=== PATIENT | male | born 1960 | race Caucasian/White ===

== ENCOUNTER 2019-06-27 09:13 | Emergency (ER) | payer MEDICARE, BC, SELFPAY ==
[2019-06-27 09:27] VITALS: BP 115/67; PULSE 84; RESP 20; TEMP 36.6; O2SAT 98
--- NOTE | 2019-06-27 09:32 | ED.GENADULT ---
HPI - General Adult General Chief complaint: Skin/Abscess/Foreign Body <KINGSLEY Vergara Last Filed: 06/27/19 09:42> Stated complaint: groin wound <KINGSLEY Vergara Last Filed: 06/27/19 09:42> Time Seen by Provider: 06/27/19 09:20 <KINGSLEY Vergara Last Filed: 06/27/19 09:42> Source: patient and family <KINGSLEY Vergara Last Filed: 06/27/19 09:42> Mode of arrival: ambulatory <KINGSLEY Vergara Last Filed: 06/27/19 09:42> Limitations: no limitations <KINGSLEY Vergara Last Filed: 06/27/19 09:42> History of Present Illness HPI narrative: Patient is a 59-year-old male who presents to emergency department for evaluation of groin wound that is been present now for the last couple of days noting some red irritation in the left inguinal region where is excoriated and irritated is a mild discomfort patient denies fever chills nausea vomiting weakness. Patient has not taken anything for her symptoms patient has not placed anything on the wound <KINGSLEY Vergara Last Filed: 06/27/19 09:42> Related Data Home medications: Home Medications Medication Instructions Recorded Confirmed atorvastatin 06/27/19 bumetanide 06/27/19 carvedilol 06/27/19 ergocalciferol (vitamin D2) 06/27/19 [Vitamin D2] fenofibric acid (choline) mg PO 06/27/19 insulin NPH isoph U-100 human unit SUBCUT 06/27/19 [Novolin N Flexpen] insulin aspart U-100 [Novolog 06/27/19 U-100 Insulin aspart] insulin glargine U-300 conc SUBCUT 06/27/19 [Toujeo Max U-300 SoloStar] insulin syringe-needle U-100 06/27/19 06/27/19 sacubitril-valsartan [Entresto] tablet 06/27/19 <KINGSLEY Vergara Last Filed: 06/27/19 09:42> Allergies/adverse reactions: Allergies Allergy/AdvReac Type Severity Reaction Status Date / Time codeine Allergy Unknown Rash Verified 06/27/19 09:30 <Mathew Guillen PA-C - Last Filed: 06/27/19 09:42> Review of Systems Review of Systems: Narrative: CONSTITUTIONAL: Denies fever, chills, or sweats. GASTROINTESTINAL: Denies nausea, vomiting SKIN: Patient with irritation to the left inguinal region there is no cellulitic changes slight pink discoloration seems to be consistent with candidiasis most likely given the splotchy appearance and that it is spread out in different areas along the side of the scrotum the groin and into the suprapubic region MUSCULOSKELETAL: Denies back pain, joint pain, or myalgia. NEUROLOGIC: Denies headache, or weakness. <Mathew Guillen PA-C - Last Filed: 06/27/19 09:42> [facility] Past Medical History Medical History: Medical History Diabetes mellitus <Mathew Guillen PA-C - Last Filed: 06/27/19 09:42> Surgical History Surgical History: Surgical History History of permanent cardiac pacemaker placement <Mathew Guillen PA-C - Last Filed: 06/27/19 09:42> Exam Narrative: Exam Narrative: GENERAL: Well-appearing, well-nourished, and in no acute distress. HEAD: Normocephalic, atraumatic. EXTREMITIES: Normal range of motion. No edema. SKIN: W patient with red tender irritated non-confluent pink discolored area of the left groin side of the scrotum and up into the suprapubic region that is splotchy and likely consistent with candidiasis NEURO: No focal deficits. Alert and oriented x3. Normal speech and gait PSYCH: Normal mood and affect. <Mathew Guillen PA-C - Last Filed: 06/27/19 09:42> Course Course Emergency Course: Patient in the room in no distress aware of case findings treatment plan and diagnosis <Mathew Guillen PA-C - Last Filed: 06/27/19 09:42> Vital Signs Vital signs: Vital Signs Temperature 36.6 C 06/27/19 09:27 Pulse Rate 84 06/27/19 09:27 Respiratory Rate 20 06/27/19 09:27 Blood Pressure 115/67 06/27/19 09:27
== END 2019-06-27 10:26 | disposition home or self-care (01) ==
LOC: ANHED 10:11
PROVIDERS: Emergency Provider Emergency Medicine
DX: L98.9 Disorder of the skin and subcutaneous tissue, unspecified (principal); E11.9 Type 2 diabetes mellitus without complications; Z79.4 Long term (current) use of insulin
CPT/HCPCS: 99283

== ENCOUNTER 2019-08-02 15:36 | Outpatient (CLI) | payer MEDICARE, BC, SELFPAY ==
[2019-08-02 16:33] LABS: Basophils Absolute Auto 0.1 K/mm3 (0.0-0.1); Basophils Percent Auto 0.5 % (0.2-1.2); Eosinophils Absolute Auto 0.3 K/mm3 (0-0.3); Hematocrit 36.1 % (42.0-52.0); Hemoglobin 12.1 g/dL (14.0-18.0); Immature Granulocyte Absolute 0.14 K/mm3 (0.00-0.031); Immature Granulocyte Percent A 1.4 % (0-0.5); Lymphocytes Absolute Auto 2.55 K/mm3 (0.9-3.2); Lymphocytes Percent Auto 25.9 % (18.3-44.2); Mean Corpuscular HGB Conc 33.5 g/dl (32-36); Mean Corpuscular Hemoglobin 28.9 pg (26-34); Mean Corpuscular Volume 86.4 fl (80-100); Mean Platelet Volume 11.5 fl (7.4-10.4); Monocytes Absolute Auto 0.9 K/mm3 (0.1-0.6); Monocytes Percent Auto 8.9 % (2.6-8.5); Neutrophils Absolute Auto 5.9 K/mm3 (1.3-6.7); Neutrophils Percent Auto 60.3 % (45.5-73.1); Platelet Count Result 189 k/mm3 (150-375); Red Blood Count 4.18 M/mm3 (4.6-6.20); Red Cell Distribution Width 14.3 % (11.5-14.5); White Blood Count 9.9 K/mm3 (4.5-10.0)
== END 2019-08-02 15:37 | disposition home or self-care (01) ==
PROVIDERS: PCP Family Medicine; Visit Provider Family Medicine
DX: D64.9 Anemia, unspecified (principal)
CPT/HCPCS: 36415; 85025

== ENCOUNTER 2019-08-14 00:42 | Outpatient (CLI) | payer MEDICARE, BC, SELFPAY | END 2019-08-14 00:43 | disposition home or self-care (01) | LOC: ANHCOVIDDT 00:43 | PROVIDERS: PCP Family Medicine; Visit Provider Internal Medicine Gastroenterology | DX: Z01.812 Encounter for preprocedural laboratory examination (principal); Z20.828 Contact with and (suspected) exposure to other viral communicable diseases | CPT/HCPCS: 87635; C9803; U0003 ==

== ENCOUNTER 2019-08-17 00:51 | Day surgery (SDC) | payer MEDICARE, BC, SELFPAY ==
[2019-08-12 11:56] VITALS: BMI 38.0
[2019-08-17 07:20] VITALS: BP 107/68; PULSE 82; RESP 20; TEMP 36.9; O2SAT 99
--- NOTE | 2019-08-17 07:35 | WPDANESEPPF ---
Anes - Initial Pre Proc Eval Procedure: Operation Date: 08/17/19 08:30 Proposed Procedures p Colonoscopy - Toby Marquez MD Date/Time: 08/17/19 07:35 Surgeon: Toby Marquez MD Pre Op Diagnosis: Lower GI Bleed, Change in Bowel Habits Patient Data Age: 59 Gender: M Height: 5 ft 7 in Weight: 112.7 kg Last Vital Signs Temp 36.9 C 08/17/19 07:20 Pulse 82 08/17/19 07:20 Resp 20 08/17/19 07:20 BP 107/68 08/17/19 07:20 Pulse Ox 99 08/17/19 07:20 Allergies Allergy/AdvReac Type Severity Reaction Status Date / Time codeine Allergy Unknown Rash Verified 08/17/19 07:19 Home Medications Medication Instructions Recorded Confirmed Type aspirin 81 mg tablet,delayed 81 mg PO DAILY 08/02/19 08/12/19 History release atorvastatin 40 mg tablet 40 mg PO DAILY tablet 08/02/19 08/12/19 History bumetanide 2 mg tablet 2 mg PO BID tablet 08/02/19 08/12/19 History carvedilol 12.5 mg tablet 12.5 mg PO BID tablet 08/02/19 08/12/19 History ergocalciferol (vitamin D2) 1,250 50,000 unit PO WEEKLY cap 08/02/19 08/12/19 History mcg (50,000 unit) capsule fenofibric acid (choline) 135 mg 135 mg PO DAILY cap 08/02/19 08/12/19 History capsule,delayed release insulin NPH isoph U-100 human 100 60 unit SUBCUT DAILY ml 08/02/19 08/12/19 History unit/mL (3 mL) subcutaneous pen insulin aspart U-100 100 unit/mL 70 unit SUBCUT TID ml 08/02/19 08/12/19 History subcutaneous solution insulin glargine U-300 conc 300 100 unit SUBCUT HS ml 08/02/19 08/12/19 History unit/mL (3 mL) subcutaneous pen isosorbide mononitrate 30 mg 30 mg PO BID tablet 08/02/19 08/12/19 History tablet,extended release 24 hr levothyroxine 175 mcg tablet 175 mcg PO DAILY 08/02/19 08/12/19 History nitroglycerin 0.4 mg sublingual 0.4 mg SUBLINGUAL Q5M PRN 08/02/19 08/12/19 History tablet sacubitril 97 mg-valsartan 103 mg 1 tablet PO BID tablet 08/02/19 08/12/19 History tablet Patient hx anesthesia problems: none Family hx anesthesia problems: none PMFSH Past Medical History Medical History CAD (coronary artery disease) Cardiomyopathy Diabetes mellitus History of kidney stones HLD (hyperlipidemia) HTN (hypertension) Long-term insulin use [place] (myocardial infarction) Surgical History Surgical History History of permanent cardiac pacemaker placement History of ventricular septal myectomy ICD (implantable cardioverter-defibrillator) in place S/P CABG (coronary artery bypass graft) Social History Social History Smoking packs per day: 1.5 Smoking cigarettes per day: 30.0 Years smoked: 35 Smoking pack-years: 52.50 Smoking status: Former smoker Tobacco type: cigarettes Smoking end date: 10/29/12 Alcohol intake: never Substance use: never Substance use type: does not use Gender identity (if verbalized by the patient): Male Anes - Eval Final PreProcedure Day of Procedure 08/17/19 07:35 Patient weight: morbidly obese Heart: regular rate and rhythm Lungs: decreased breath sounds Airway: Mallampati scale class II Neurological: other (alert) Last oral intake: >/= 8 hours ASA classification: IV Emergent: no Anesthetic plan: proceed Anesthesia type and monitoring: general GIVS and standard monitoring Other findings: etomidate only Informed Consent: The patient's anesthetic plan and its attendant risks and benefits were discussed with the patient/family/POA. Questions were solicited and answers provided to the satisfaction of the patient/family/POA.
--- NOTE | 2019-08-17 07:40 | WPDGICN ---
Assessment and Plan Assessment and plan (1) History of lower GI bleeding: Code(s): Z87.19 - Personal history of other diseases of the digestive system Status: Acute Assessment and Plan: Patient has noticed blood in his stools typically the tight toilet bowl will be reddish. The etiology of this remains unclear will be evaluated by colonoscopy. (2) Encounter for diagnostic colonoscopy due to change in bowel habits: Code(s): R19.4 - Change in bowel habit Status: Acute Assessment and Plan: Patient reports sudden onset of diarrhea that began March of 2018. This may represent irritable bowel syndrome but that his frequency of stools at this dose Mauritian degree it is much more than typical for this high-fiber supplementation is encouraged further recommendations will be given after endoscopy. Kaopectate uses may be required to supplement fiber. (3) History of colon polyps: Code(s): Z86.010 - Personal history of colonic polyps Status: Acute Assessment and Plan: Patient has a history of colon polyps most recent colonoscopy 5 years ago revealed colon polyps 2014. Repeat colonoscopy at this time to assess this as well. (4) Obesity (BMI 30.0-34.9): Code(s): E66.9 - Obesity, unspecified Status: Acute (5) History of ventricular septal myectomy: Code(s): Z98.890 - Other specified postprocedural states Status: Acute Assessment and Plan: Patient has severe congestive heart failure. Currently followed by cardiac service at [facility] ventral transplantation is anticipated. (6) Diabetes mellitus: Code(s): E11.9 - Type 2 diabetes mellitus without complications Status: Acute GI Consult Note Consult date/time: 08/17/19 07:40 HPI: Pancho Vega is a 59 year old male Seen in evaluation at the request of Dr. Guillermo Mirza. Patient has a history of severe congestive heart failure. 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 Currently is on the cardiac transplant list. He reports a sudden change in his bowel habits after March of 2018. This occurred after a trip to [place]. He reports the rather sudden onset of this Diarrhea. He states symptoms occur up to 6 bowel movements a day. Stools are typically loose. Occasionally they will be formed and normal. He has had several episodes of red blood noted in the toilet bowl just last week. He denies significant abdominal pain however occasionally notes abdominal cramping. Because patient is on the cardiac transplant list plan is to evaluate this prior to continue cardiac evaluation. He does have a history of colon polyps identified by colonoscopy in 2015. Past medical history is significant for congestive heart failure. History of myocardial infarction. History of cardiac aneurysm repair. Status post coronary artery bypass grafting. He has a history of implanted cardiac defibrillator. He has been treated for diabetes, hypertension, Review of Systems Review of Systems: All systems reviewed & are unremarkable except as noted in HPI and below [facility] Past Medical History Medical History CAD (coronary artery disease) Cardiomyopathy Diabetes mellitus History of kidney stones HLD (hyperlipidemia) HTN (hypertension) Long-term insulin use [place] (myocardial infarction) Surgical History Surgical History History of permanent cardiac pacemaker placement History of ventricular septal myectomy ICD (implantable cardioverter-defibrillator) in place S/P CABG (coronary artery bypass graft) Social History Social History Smoking packs per day: 1.5 Smoking cigarettes per day: 30.0 Years smoked: 35 Smoking pack-years: 52.50 Smoking status: Former smoker Tobacco
[2019-08-17 07:43] LABS: Glucose Point of Care 248 (65-105)
[2019-08-17] MEDS: LACTATED RINGERS 1,000 ML 150 ML IV CONT (07:44)
[2019-08-17 08:48] VITALS: BP 117/74; PULSE 73; RESP 19; O2SAT 99
--- NOTE | 2019-08-17 09:03 | SUR.PHASEII ---
Pacemaker/defibrillator does not need interrogation post operatively per Anesthesiologist Dr. Diaz.
[2019-08-17 09:08] VITALS: BP 109/71; PULSE 69; RESP 23; O2SAT 95
[2019-08-17 09:18] VITALS: BP 117/81; PULSE 71; RESP 18; O2SAT 95
[2019-08-17 09:27] LABS: Glucose Point of Care 234 (65-105)
== END 2019-08-17 09:30 | disposition home or self-care (01) ==
PROVIDERS: PCP Family Medicine; Visit Provider Internal Medicine Gastroenterology
PROC: 0DJD8ZZ Inspection of Lower Intestinal Tract, Via Natural or Artificial Opening Endoscopic (ICD-10-PCS; CPT 45378; principal; 2019-08-17 08:30)
DX: R19.7 Diarrhea, unspecified (principal); D12.3 Benign neoplasm of transverse colon; K63.5 Polyp of colon; K62.1 Rectal polyp; K57.30 Diverticulosis of large intestine without perforation or abscess without bleeding; K64.8 Other hemorrhoids; R19.4 Change in bowel habit; Z87.19 Personal history of other diseases of the digestive system; I11.0 Hypertensive heart disease with heart failure; E11.9 Type 2 diabetes mellitus without complications; I25.2 Old myocardial infarction; I50.9 Heart failure, unspecified; E78.5 Hyperlipidemia, unspecified; I25.10 Atherosclerotic heart disease of native coronary artery without angina pectoris; I42.9 Cardiomyopathy, unspecified; Z95.1 Presence of aortocoronary bypass graft; Z79.4 Long term (current) use of insulin; Z95.810 Presence of automatic (implantable) cardiac defibrillator; Z87.891 Personal history of nicotine dependence; Z79.82 Long term (current) use of aspirin; E66.01 Morbid (severe) obesity due to excess calories; Z68.38 Body mass index [BMI] 38.0-38.9, adult
CPT/HCPCS: 45385; 88305; J7120

== ENCOUNTER 2020-09-08 15:34 | Outpatient (CLI) | payer MEDICARE, BC, SELFPAY ==
--- NOTE | ~2020-09-08 | CT_ITS ---
EXAMINATION: CT lung screening DATE: 09/08/2020 16:19 INDICATION: HX OF TOBACCO DEPENDENCE TECHNIQUE: Computed tomography (CT) of the chest was performed without intravenous contrast. Addition al 3D reconstructions utilizing coronal maximum intensity projection (MIP) were performed. Automated exposure control and iterative reconstruction technique were employed. The dose-length product was 30 6.32 mGy-cm. COMPARISON: None FINDINGS: Mild paraseptal emphysema at the upper lung zones. No pulmonary nodules, pneumonia, pulmonary edema o r pleural effusion. Heart size is normal. Atherosclerotic coronary artery calcifications with change of prior coronary artery stenting and coronary artery bypass grafting. Dual lead cardiac pacemaker wi th lead tips at the right atrial appendage and at the apex of the right ventricle. No pericardial eff usion. Thoracic aorta is normal in caliber. No pathologically enlarged thoracic calcified gallstone a t the neck of the normal-appearing gallbladder. Visualized upper abdomen is otherwise unremarkable. l ymphadenopathy. Mild thoracic spondylosis with bridging osteophytes at multiple levels consistent wit h diffuse idiopathic skeletal hyperostosis (DISH). IMPRESSION: 1. Lung-RADS category 1: Negative. Continue annual screening with noncontrast low-dose chest CT in 12 months. 2. Mild emphysema. 3. Cholelithiasis. Reviewed, dictated and finalized at location A. IMPRESSION: 1. Lung-RADS category 1: Negative. Continue annual screening with noncontrast l ow-dose chest CT in 12 months. 2. Mild emphysema. 3. Cholelithiasis.
== END 2020-09-08 15:35 | disposition home or self-care (01) ==
PROVIDERS: PCP Family Medicine; Visit Provider Family Medicine
DX: Z12.2 Encounter for screening for malignant neoplasm of respiratory organs (principal); Z87.891 Personal history of nicotine dependence; J43.9 Emphysema, unspecified; K80.20 Calculus of gallbladder without cholecystitis without obstruction
CPT/HCPCS: 71271

== ENCOUNTER → 2020-10-20 09:50 | Outpatient (CLI) | payer MEDICARE, BC, SELFPAY ==
--- NOTE | ~2020-10-20 | US_ITS ---
EXAMINATION: US abdomen complete EXAM DATE: 10/20/2020 10:21 INDICATION: R10.9 - Unspecified abdominal pain. TECHNIQUE: Multiple grayscale and Doppler images of the complete abdomen were obtained (by a technolo gist who performed the scan) and subsequently reviewed. There is no prior study for comparison. FINDINGS: The abdominal aorta is normal in caliber. Visualized portion IVC is patent. The pancreatic head a nd body are normal in appearance. The pancreatic tail is not visualized. The liver has normal echogenicity and contour. There are no focal liver lesions identified. There is no evidence of intrahepatic biliary duct dilation. Portal venous flow was seen in the hepatopedal , normal direction and has normal Doppler waveform. Common bile duct measures 4 mm, which is normal. The gallbladder wall is normal in thickness, with ex pected amount of distention. No sonographic evidence of pericholecystic fluid. There is cholelithia sis. Technologist performing exam reports patient did not demonstrate sonographic Neal's sign. P kirti note that this sign is less reliable in patients who have received pain medication. Right kidney: There is normal contour and echogenicity. It measures 11.2 x 5.0 x 5.7 centimeters. T here is an 8 mm cyst. There is no hydronephrosis. Left kidney: There is normal contour and echogenicity. It measures 9.8 x 6.1 x 4.9 centimeters. Th ere are no focal renal lesions identified. There is no hydronephrosis. The spleen measures 8.7 centimeters and is morphologically normal. IMPRESSION: 1. Cholelithiasis. Reviewed, dictated and finalized at location A. IMPRESSION: 1. Cholelithiasis.
== END ==
PROVIDERS: PCP Family Medicine; Visit Provider Nurse Practitioner Family
DX: R10.9 Unspecified abdominal pain (principal); K80.20 Calculus of gallbladder without cholecystitis without obstruction
CPT/HCPCS: 76700

== ENCOUNTER → 2021-04-20 12:43 | Outpatient (CLI) | payer MEDICARE, BC, SELFPAY ==
--- NOTE | ~2021-04-20 | CT_ITS ---
EXAMINATION: CTA abdomen pelvis DATE: 04/20/2021 13:33 INDICATION: Lower abdominal pain TECHNIQUE: Computed tomographic angiography (CTA) of the abdomen and pelvis was performed with 100 mL Omnipaque-350 intravenous contrast. Maximum intensity projection 3D-reconstructions of the aorta and other arteries were constructed by the technologist on a separate workstation. The dose-length produ ct (DLP) was 924.02 mGy-cm. Automated exposure control and iterative reconstruction technique were em ployed. COMPARISON: 09/28/2004 FINDINGS: CTA abdomen and pelvis: There is no aneurysm or dissection of the abdominal aorta. There is calcified atherosclerosis of the aorta and many of the other arteries. The celiac axis, superior mesenteric ar benjamin, and inferior mesenteric artery are unremarkable. Single renal arteries are present bilaterally. Additional findings: Minimal dependent atelectasis is present in the lung bases. Cardiomegaly is note d. There is a small sliding hiatal hernia. There is a 5 mm cyst in the right hepatic lobe. A stone is present in the nondistended gallbladder. The spleen, pancreas, and adrenal glands are normal. There is an area of cortical scarring laterally in the left mid kidney. Cysts of the right kidney measure u p to 10 mm. No pathologically enlarged abdominal or pelvic lymph nodes are identified. There is no fr ee intraperitoneal gas or evidence of bowel obstruction. Colonic diverticulosis is present without ev idence of diverticulitis. The appendix is normal. There is mild lumbar spondylosis. IMPRESSION: 1. No CT correlate for the patient's symptoms. 2. Atherosclerosis, otherwise unremarkable abdominal and pelvic CTA. 3. Cholelithiasis without evidence of cholecystitis. Reviewed, dictated and finalized at location F. [facility]
[2021-04-20 13:06] LABS: Estimated Glomerular Filt Rate 48
== END ==
PROVIDERS: PCP Family Medicine; Visit Provider Surgery
DX: R10.30 Lower abdominal pain, unspecified (principal); I70.0 Atherosclerosis of aorta; K80.20 Calculus of gallbladder without cholecystitis without obstruction
CPT/HCPCS: 74174; Q9967

== ENCOUNTER 2021-10-19 16:10 | Outpatient (CLI) | payer MEDICARE, BC, SELFPAY ==
--- NOTE | ~2021-10-19 | CT_ITS ---
EXAMINATION:CT lung screening DATE: 10/19/2021 16:33 INDICATION: Tobacco use. Smoker who quit 10 years ago with 30 pack year history. TECHNIQUE: Computed tomography (CT) of the chest was performed without intravenous contrast. Automate d exposure control and iterative reconstruction technique were employed. The dose-length product (DLP ) was 195.67 mGy-cm. COMPARISON: Chest CT 09/08/2020 FINDINGS: There is stable mild scarring at the lung apices. There is mild emphysema. No pleural effus ion. The heart size is normal. There is an old infarct in anterior wall of left ventricle. There are coronary artery calcifications. There are changes of coronary artery bypass grafting. No pericardial effusion. There is a left chest wall pacer with leads in the right atrium and right ventricle. There is a gallstone in the gallbladder, which is normal in size. There is diffuse hepatic steatosis. There is mild thoracic spondylosis. IMPRESSION: 1. Lung-RADS category 2: Benign appearance or behavior. Continue annual screening with noncontrast lo w-dose chest CT in 12 months. Reviewed, dictated and finalized at location A. IMPRESSION: 1. Lung-RADS category 2: Benign appearance or behavior. Continue annual screeni ng with noncontrast low-dose chest CT in 12 months.
== END 2021-10-19 16:11 | disposition home or self-care (01) ==
PROVIDERS: PCP Family Medicine; Visit Provider Family Medicine
DX: Z12.2 Encounter for screening for malignant neoplasm of respiratory organs (principal); Z87.891 Personal history of nicotine dependence
CPT/HCPCS: 71271

== ENCOUNTER 2021-11-17 10:47 | Emergency (ER) | payer MEDICARE, BC, SELFPAY ==
--- NOTE | ~2021-11-17 | XR_ITS ---
EXAMINATION: XR chest 2V DATE: 11/17/2021 13:05 INDICATION: Chest pain and swelling. TECHNIQUE: Frontal and lateral views of the chest were obtained. COMPARISON: Chest CT 10/19/2021 FINDINGS: There is no pneumonia, pleural effusion, pneumothorax. The heart size is normal. Median nito rnotomy wires and mediastinal surgical clips are seen, likely from prior coronary artery bypass graft ing. There is a left chest wall pacer with leads in the right atrium and right ventricle. IMPRESSION: 1. No acute cardiopulmonary disease. Reviewed, dictated and finalized at location A.
[2021-11-17 10:51] VITALS: BP 109/58; PULSE 70; RESP 18; TEMP 36.7; O2SAT 98
[2021-11-17 13:01] LABS: Basophils Absolute Auto 0.1 K/mm3 (0.0-0.1); Basophils Percent Auto 0.7 % (0.2-1.2); Eosinophils Absolute Auto 0.3 K/mm3 (0-0.3); Eosinophils Percent Auto 4.4 % (0-4.4); Hematocrit 37.8 % (42.0-52.0); Hemoglobin 12.2 g/dL (14.0-18.0); Immature Granulocyte Absolute 0.04 K/mm3 (0.00-0.031); Immature Granulocyte Percent A 0.6 % (0-0.5); Lymphocytes Absolute Auto 1.98 K/mm3 (0.9-3.2); Mean Corpuscular HGB Conc 32.3 g/dl (32-36); Mean Corpuscular Hemoglobin 28.5 pg (26-34); Mean Corpuscular Volume 88.3 fl (80-100); Mean Platelet Volume 11.8 fl (7.4-10.4); Monocytes Absolute Auto 0.6 K/mm3 (0.1-0.6); Monocytes Percent Auto 8.2 % (2.6-8.5); Neutrophils Absolute Auto 4.1 K/mm3 (1.3-6.7); Neutrophils Percent Auto 58.1 % (45.5-73.1); Platelet Count Result 200 k/mm3 (150-375); Red Blood Count 4.28 M/mm3 (4.6-6.20); Red Cell Distribution Width 13.7 % (11.5-14.5); White Blood Count 7.1 K/mm3 (4.5-10.0)
[2021-11-17 13:11] LABS: Anion Gap 17 mmol/L (8-16); Blood Urea Nitrogen 36 mg/dL (9-20); Calcium 10.1 mg/dL (8.4-10.2); Carbon Dioxide 21 mmol/L (22-30); Chloride 101 mmol/L (98-107); Estimated CRCL calculation 39 ml/min; Estimated Glomerular Filt Rate 34; Glucose 188 mg/dL (65-110); Sodium 139 mmol/L (137-145)
--- NOTE | 2021-11-17 13:27 | ED.WOUNDLAC ---
HPI - Wound/Laceration General Chief Complaint: Wound/Laceration Stated Complaint: drainage from internal defibrillator History of Present Illness HPI narrative: 61-year-old male states that about a week ago he bumped/bruised his chest around his defibrillator sits and consequently had some mild swelling around it, yesterday a small hole appeared to draining serous drainage, he denies any fevers or chills, pain around the defibrillator. Related Data Home Medications Medication Instructions Recorded Confirmed aspirin 81 mg tablet,delayed 81 mg PO DAILY 08/02/19 10/10/21 release (Adult Low Dose Aspirin) bumetanide 2 mg tablet 2 mg PO BID 08/02/19 10/10/21 carvedilol 12.5 mg tablet 12.5 mg PO BID 08/02/19 10/10/21 fenofibric acid (choline) 135 mg 135 mg PO DAILY 08/02/19 10/10/21 capsule,delayed release insulin NPH isoph U-100 human 100 60 unit subcut DAILY 08/02/19 10/10/21 unit/mL (3 mL) subcutaneous pen (Novolin N Flexpen) insulin aspart U-100 100 unit/mL 70 unit subcut TID 08/02/19 10/10/21 subcutaneous solution (Novolog U-100 Insulin aspart) insulin glargine U-300 conc 300 100 unit subcut HS 08/02/19 10/10/21 unit/mL (3 mL) subcutaneous pen (Toujeo Max U-300 SoloStar) isosorbide mononitrate 30 mg 30 mg PO BID 08/02/19 10/10/21 tablet,extended release 24 hr nitroglycerin 0.4 mg sublingual 0.4 mg sublingual Q5M PRN Chest 08/02/19 10/10/21 tablet Pain sacubitril 97 mg-valsartan 103 mg 1 tablet PO BID 08/02/19 10/10/21 tablet (Entresto) Allergies Allergy/AdvReac Type Severity Reaction Status Date / Time codeine Allergy Unknown Rash Verified 10/10/21 16:09 Review of Systems Review of Systems: CONST: No fever. HEENT: No sore throat C/V: No chest pain RESP: No cough GI: No nausea : No dysuria. M/S: No joint pain. SKIN: Small punctate skin lesion overlying defibrillator. NEURO: [No headache or focal numbness or weakness] PSYCH: [No depression] [facility] Past Medical History Medical History CAD (coronary artery disease) Cardiomyopathy Diabetes mellitus History of kidney stones HLD (hyperlipidemia) HTN (hypertension) Long-term insulin use Obesity [place] (myocardial infarction) Surgical History Surgical History H/O left inguinal hernia repair History of permanent cardiac pacemaker placement History of ventricular septal myectomy ICD (implantable cardioverter-defibrillator) in place S/P CABG (coronary artery bypass graft) Family History Family History Father Heart disease Mother Heart disease Hypertension Sibling Diabetes mellitus Social History Social History Smoking packs per day: 1.5 Smoking cigarettes per day: 30.0 Years smoked: 35 Smoking pack-years: 52.50 Smoking status: Former smoker Tobacco type: cigarettes Second hand tobacco smoke exposure: No Smoking end date: 10/29/12 Alcohol intake: never Substance use: never Substance use type: does not use Additional occupation/education comments: Disabled Gender identity (if verbalized by the patient): Male Sexual Orientation (if Verbalized by the Patient): Straight or Heterosexual Exam Narrative: EXAMINATION OF ORGAN SYSTEMS/BODY AREAS: Constitutional: Vital signs per nursing GENERAL:[No acute distress, non-toxic appearing.] HEAD: Normal with no signs of head trauma. EYES: EOMI, conjunctiva normal ENT: Hearing grossly intact LUNGS: Nonlabored breathing. HEART: [Regular rate and rhythm] ABD: [Soft], [nontender to palpation] EXT: Normal range of motion SKIN: Tiny punctate lesion overlying defibrillator, no erythema or induration or tenderness, no active drainage NEURO: [Alert and oriented x 3. No gross focal sensory or strength deficits.] PSYCH: Normal affect Course Vital Signs Vi
--- NOTE | 2021-11-17 13:50 | PC.NURSE ---
Patient updated. Pt does not wish to be transferred to [place]. Pt's states they spoke with the on-call physician with his [facility] and that they were okay with him coming to [facility] to get it looked at. Pt understood that if there was concern for infection he may then need to go to [facility]. Pt states that if there isn't a big concern for infection then he will follow up outpatient. Pt spoke to MD regarding this situation as well. Per MD, will attempt to call [facility] [employer] [facility] and discuss. Pt denies any needs at this time. Family at bedside.
[2021-11-17 15:28] VITALS: BP 101/78; PULSE 61; RESP 22; O2SAT 96
== END 2021-11-17 15:29 | disposition home or self-care (01) ==
PROVIDERS: Emergency Provider Emergency Medicine; PCP Family Medicine
DX: S29.9XXA Unspecified injury of thorax, initial encounter (principal); Z95.810 Presence of automatic (implantable) cardiac defibrillator; I25.10 Atherosclerotic heart disease of native coronary artery without angina pectoris; E11.9 Type 2 diabetes mellitus without complications; E78.5 Hyperlipidemia, unspecified; I25.2 Old myocardial infarction; I10 Essential (primary) hypertension; E66.9 Obesity, unspecified; Z68.34 Body mass index [BMI] 34.0-34.9, adult; Z87.442 Personal history of urinary calculi; Z79.4 Long term (current) use of insulin; Z79.82 Long term (current) use of aspirin; Z95.1 Presence of aortocoronary bypass graft; Z87.891 Personal history of nicotine dependence; W22.8XXA Striking against or struck by other objects, initial encounter
CPT/HCPCS: 36415; 71046; 80048; 85025; 87040; 99283

== ENCOUNTER 2022-11-05 15:49 | Outpatient (CLI) | payer MEDICARE, BC, SELFPAY ==
--- NOTE | ~2022-11-05 | CT_ITS ---
EXAMINATION: CT lung screening DATE: 11/05/2022 16:39 INDICATION: lung cancer screening TECHNIQUE: Computed tomography (CT) of the chest was performed without intravenous contrast. Addition al 3D reconstructions utilizing coronal maximum intensity projection (MIP) were performed. Automated exposure control and iterative reconstruction technique were employed. The dose-length product was 27 6.61 mGy-cm. COMPARISON: 10/19/2021 FINDINGS: Mild emphysema. New small irregular focus of groundglass opacity measuring 5 mm in the right upper lo be. No other suspicious pulmonary nodules, pneumonia, pulmonary edema or other pulmonary infiltrates. No pleural effusion. Heart size is normal. Atherosclerotic coronary artery calcifications. 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 Postoperative change of prior median sternotomy and coronary artery bypass grafting. Dual le ad pacemaker/AICD with lead tips at the right atrial appendage and near the apex of the right ventric le. No pericardial effusion. Thoracic aorta is normal in caliber. No pathologically enlarged thoracic lymphadenopathy. Calcified gallstone within the normal nondilated gallbladder. Diffuse hepatic steat osis. 1 cm hyperdense proteinaceous/hemorrhagic cyst at the right kidney. Mild to moderate thoracic s pondylosis. IMPRESSION: 1. Lung-RADS category 2: Benign appearance or behavior. Continue annual screening with noncontrast lo w-dose chest CT in 12 months. 2. Cholelithiasis. Reviewed, dictated and finalized at location L. IMPRESSION: 1. Lung-RADS category 2: Benign appearance or behavior. Continue annual screeni ng with noncontrast low-dose chest CT in 12 months. 2. Cholelithiasis.
== END 2022-11-05 15:50 | disposition home or self-care (01) ==
PROVIDERS: PCP Family Medicine; Visit Provider Family Medicine
DX: Z12.2 Encounter for screening for malignant neoplasm of respiratory organs (principal); Z87.891 Personal history of nicotine dependence; K80.20 Calculus of gallbladder without cholecystitis without obstruction
CPT/HCPCS: 71271

== ENCOUNTER 2023-12-04 14:17 | Outpatient (CLI) | payer MEDICARE, BC, SELFPAY ==
--- NOTE | ~2023-12-04 | CT_ITS ---
EXAMINATION:CT lung screening DATE: 12/04/2023 14:40 INDICATION: Personal history of nicotine dependence. Smoker who quit 12 years ago with 3 5 pack year history. TECHNIQUE: Computed tomography (CT) of the chest was performed without intravenous contrast. Automate d exposure control and iterative reconstruction technique were employed. The dose-length product (DLP ) was 358.61 mGy-cm. COMPARISON: Chest CT 11/05/2022 FINDINGS: There is mild emphysema. There is mild atelectasis bilaterally. No pleural effusion. There is left ventricular enlargement of the heart. There are changes of coronary artery bypass grafting. N o pericardial effusion. There are pacer wires in right atrium and right ventricle. There is a gallsto ne in the gallbladder, which is normal in size. There is mild thoracic spondylosis. IMPRESSION: 1. Lung-RADS category 1: Negative. Continue annual screening with noncontrast low-dose chest CT in 12 months. Reviewed, dictated and finalized at location A. IMPRESSION: 1. Lung-RADS category 1: Negative. Continue annual screening with noncontrast l ow-dose chest CT in 12 months.
== END 2023-12-04 14:18 | disposition home or self-care (01) ==
PROVIDERS: PCP Family Medicine; Visit Provider Family Medicine
DX: Z12.2 Encounter for screening for malignant neoplasm of respiratory organs (principal); Z87.891 Personal history of nicotine dependence
CPT/HCPCS: 71271

== ENCOUNTER 2024-12-17 13:35 | Outpatient (CLI) | payer MEDICARE, BC, SELFPAY ==
--- OUTSIDE RECORDS SUMMARY | 2007-12-24 11:00 | XMS_ITS | Continuity of Care Document ---
Author Organization [facility] Address [address] [place] [address] [address] [place] [address] Phone Care Team Providers Care Hand Ii Cutter Name Role Phone Ventura OD, Toby Unavailable Unavailable Procedures Procedure Date Eye Exam, New Patient Refraction Advance Directives Directive Yes / No Effective Date File Name No Information Encounters Encounter Description Practice Location Reason(s) For Visit Diagnoses Date Provider Providers Copied on Encounter [facility], [address] [place] [address] [address], [place], [place], [id number], [place] tel:[phone] [facility] No Information Nov- 5-200 8 Ventura OD Toby. [address] , [address], [place], [address], [place]. tel:[phone] Family History Family Member Type Diagnosis Age At Onset No Information Payers Payer name Insurance type Covered alliance party ID Authoriza tion(s) [employer] [id number] Social History Type Description Quantity Date Captured Comments Sex Male Smoking Status No Information Chief Complaint And Reason For Visit No Information Reason For Referral Reason For Referral No Information History Of Present Illness Encounter Date Complaint History Of Prese nt Illness No Information Functional Status Date Functional Assessmen t No Information Instructions Date Instruction Additional Infor mation No Information Assessments Type Assessment Date No Information Patient Care Teams Name Effective Dates (start - stop) Status Members No Information
--- NOTE | ~2024-12-17 | CT_ITS ---
EXAMINATION:CT lung screening DATE: 12/17/2024 13:54 INDICATION: Personal history of nicotine dependence. TECHNIQUE: Computed tomography (CT) of the chest was performed without intravenous contrast. Automated exposure control and iterative reconstruction technique were employed. The dose-length product (DLP) was 232.07 mGy-cm. COMPARISON: Chest CT 12/04/2023 FINDINGS: There is mild emphysema. There is a stable 4 mm nodule in right lower lobe. No pleural effusion. Cardiomegaly is noted. There are wall calcifications of left ventricle of the heart. There are coronary artery calcifications. There are changes of coronary artery bypass grafting. No pericardial effusion. There is a right chest wall pacer with leads in the right atrium and right ventricle. There is a gallstone in the gallbladder, which is normal in size. There is a 10 mm hemorrhagic cyst in right kidney. There is moderate thoracic spondylosis. IMPRESSION: 1. Lung-RADS category 2: Benign appearance or behavior. Continue annual screening with noncontrast low-dose chest CT in 12 months. Reviewed, dictated and finalized at location E. IMPRESSION: 1. Lung-RADS category 2: Benign appearance or behavior. Continue annual screeni ng with noncontrast low-dose chest CT in 12 months.
--- OUTSIDE RECORDS SUMMARY | 2024-12-17 13:44 | XMS_ITS | Encounter Summary ---
Author Organization [facility] Address [address] [place] [address] Care Team Providers Care Parking Enforcement Manager Name Role Phone Angela Hennessy MD Unavailable [phone] Merissa Davies MD Unavailable [phone] Guillermo Mirza MD Primary Care Provider Toby Marquez MD Unavailable [phone] Jessy Bates NP Unavailable [phone] Matt Zarate MD Unavailable Erika Devine MD Unavailable [phone] Shelia Louis RN Unavailable Re Silva RN Unavailable Unavailable Yanet Britton Unavailable Unavailable Encounter Details Date Type Department Care Team (Late st Contact Info) Description 08/17/2023 Documentation [facility] [address] [place] [address] Tiago Garcia RRT Social History Tobacco Use Types Packs/Day Years Used Date Smoking Tobacco: Former Cigarettes 1.5 36 1 976 - 2012 Passive Smoke Exposure: Never Smokeless Tobacco: Never Alcohol Use Standard Drinks/Week Comments No 0 (1 standard drink = 0.6 oz pur e alcohol) [facility] Utilities Answer Date Recorded In the past 12 months has [employer] electric, gas, oil, or water company threatened to shut off services in your home? No 07/21/2023 Social Connection and Isolation Panel Answer Date Recorded In a typical week, how many times do you talk on the phone with family, friends, or neighbors? More than three times a week 07/21/2023 How often do you get togethe r with friends or relatives? Once a week 07/21/2023 How often do you attend chur ch or buddhist services? Never 07/21/2023 Do you belong to any clubs o r organizations such as scientology groups, unions, fraternal or athletic groups, or school groups? No 07/21/2023 How often do you attend meet ings of the clubs or organizations you belong to? Never 07/21/2023 Are you , , di vorced, , never , or living with a partner? 07/21/2023 AUDIT-C Answer Date Recorded Q1: How often do you have a drink containing alcohol? Never 04/16/2023 Q2: How many drinks containi ng alcohol do you have on a typical day when you are drinking? Patient does not drink Q3: How often do you have si x or more drinks on one occasion? Never 04/16/2023 Overall Financial Resource Strain (CARDIA) Answe r Date Recorded How hard is it for you to pa y for the very basics like food, housing, medical care, and heating? Not hard at all 07/21/2023 Hunger Vital Sign Answer Date Recorded Within the past 12 months, y ou worried that your food would run out before you got the money to buy more. Never true 07/21/19 24 Within the past 12 months, t he food you bought just didn't last and you didn't have money to get more. Never true 07/21/2023 PRAPARE - Transportation Answer Date Re corded In the past 12 months, has l ack of transportation kept you from medical appointments or from getting medications? No 06/30 In the past 12 months, has l ack of transportation kept you from meetings, work, or from getting things needed for daily living? No 07/21/2023 Housing Stability Vital Sign Answer Salazar e Recorded In the last 12 months, was t here a time when you were not able to pay the mortgage or rent on time? No 07/21/2023 In the last 12 months, how many places have you lived? 1 07/21/2023 In the last 12 months, was t here a time when you did not have a steady place to sleep or slept in a usp (including now)? No 07/21/2023 Personal Safety Answer Date Recorded Have you ever been in or are you currently in a harmful physical or emotional relationship or is someone making you feel afraid or unsafe? 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 Gender Identity Not on file Sexual Orientation Straight 01/18/2019 2: 04 PM CDT documented as of this encounter Plan of Treatment Not on file documented as of this encounter Visit Diagnoses Not on filedocumented in this encounter Care Teams Parking Enforcement Manager Relationship Specialty Start Date End Date Guillermo Mirza MD [address] [address] PCP - General Family Medicine 09/17/19 Angela Hennessy MD Referring Physician Endocrinology Diabetes & Metabolism 12/15/17 Merissa Davies MD Referring Physician Cardiology 06/11/19 Toby Marquez MD [address] [place] [address] [address] Referring Physician Gastroenterology 10/19/19 Jessy Bates NP [facility] [address] [address] Nurse Practitioner Nurse Practitioner 07/23/21 Matt Zarate MD [address] [place] [address] [address] Referring Physician Cardiology 07/30/23 Erika Devine MD [address] [place] [address] Consulting Physician Nephrology 07/30/23 Shelia Louis, RN [address] [facility] [address] [place] [address] SHOP Outpatient Weight Reducing Technician 08/26/23 09/21/23 Re Silva RN Heart Failure Coordinator 08/27/23 Yanet Britton Primary Electrician Technician 12/16/24 documented as of this encounter
--- OUTSIDE RECORDS SUMMARY | 2024-12-17 13:44 | XMS_ITS | Encounter Summary ---
Author Organization [facility] Address [address] [facility] [address] [place] [address] Care Team Providers Care Internet And E Business Project Manager Name Role Phone Judah Cortés MD Primary Care Provider [phone] Judah Cortés MD Primary Care Provider [phone] Killian Coppola MD Primary Care Provider + [phone] Hannah, Physician Primary Care Provider [phone] Killian Coppola MD Primary Care Provider + [phone] Hannah, Physician Primary Care Provider [phone] Killian Coppola MD Primary Care Provider + [phone] Angela Hennessy MD Unavailable [phone] Angela Hennessy MD Unavailable [phone] Hannah, Physician Primary Care Provider [phone] Fabio Enamorado DO Primary Care Provider [phone] Merissa Davies MD Unavailable [phone] Fabio Enamorado DO Primary Care Provider [phone] Guillermo Mirza MD Primary Care Provider Toby Marquez MD Unavailable [phone] Jessy Bates NP Unavailable [phone] Matt Zarate MD Unavailable Erika Devine MD Unavailable Shelia Louis RN Unavailable Re Silva RN Unavailable Unavailable Yanet Britton Unavailable Unavailable Encounter Details Date Type Department Care Team (Late st Contact Info) Description 05/20/2016 Orders Only [facility] ProviderNaldo MD [address] [id number] Social History Tobacco Use Types Packs/Day Years Used Date Smoking Tobacco: Never Assessed Alcohol Use Standard Drinks/Week Comments No 0 (1 standard drink = 0.6 oz pur e alcohol) Sex and Gender Information Value Date Recorded Sex Assigned at Not on file 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 Historical Provider [facility] ALEXEI BRENNER Final Result documented in this encounter Visit Diagnoses Not on filedocumented in this encounter Additional Health Concerns Infection Onset Date Last Indicated Resolved Time Exposure, COVID-19 Comment:Added automatically based on COVID19 lab answers indicating exposure risk IP Review- Patient can be evaluated for iso removal on 12/07/21. 12/04/21 10:29 AM Neeta Pace 11/26/2021 11/26/2021 2 3:05 AM CDT documented as of this encounter Care Teams Internet And E Business Project Manager Relationship Specialty Start Date End Date Judah Cortés MD [address] [place] [address] PCP - General 06/28/16 09/09/16 Judah Cortés MD [address] [place] [address] PCP - General 02/26/15 06/27/16 Killian Coppola MD [address] [facility] [place] [address] PCP - General 09/10/16 12/23/16 No, Physician PCP - General 12/24/16 03/03/17 Killian Coppola MD [address] [facility] [place] [address] PCP - General 03/04/17 07/07/17 No, Physician PCP - General 07/08/17 09/22/17 Killian Coppola MD [address] [facility] [place] [address] PCP - General Family Medicine 09/23/17 12/20/18 No, Physician PCP - General 12/21/18 04/11/19 Fabio Enamorado DO PCP - General Internal Medicine 04/12/19 06/16/19 Fabio Enamorado DO PCP - General 06/17/19 09/16/19 Guillermo Mirza MD [address] [facility] [place] [address] PCP - General Family Medicine 09/17/19 Angela Hennessy MD Referring Physician Endocrinology Diabetes & Metabolism 12/15/17 Angela Hennessy MD Referring Physician Endocrinology Diabetes & Metabolism 02/16/18 04/11/19 Merissa Davies MD Referring Physician Cardiology 06/11/19 Toby Marquez MD [facility] [address] [place] [address] Referring Physician Gastroenterology 10/19/19 Jessy Bates NP [address] [place] [address] [place] [address] Nurse Practitioner Nurse Practitioner 07/23/21 Matt Zarate MD [facility] [address] [place] [address] Referring Physician Cardiology 07/30/23 Erika Devine MD [facility] [address] [place] [address] Consulting Physician Nephrology 07/30/23 Shelia Louis RN [address] [facility] [address] [place] [address] SHOP Outpatient Cardiac Monitor Technician 08/26/23 09/21/23 Re Silva RN Heart Failure Coordinator 08/27/23 Yanet Britton Primary Pediatric Dentist 12/16/24 documented as of this encounter
--- OUTSIDE RECORDS SUMMARY | 2024-12-17 13:44 | XMS_ITS | Encounter Summary ---
Author Organization [facility] Address [address] [place] [address] Phone Care Team Providers Care Corporate Development Analyst Name Role Phone Killian Coppola MD Primary Care Provider [phone] Angela Hennessy MD Unavailable [phone] Angela Hennessy MD Unavailable No, Physician Primary Care Provider Fabio Enamorado DO Primary Care Provider [phone] Merissa Davies MD Unavailable [phone] Fabio Enamorado DO Primary Care Provider Guillermo Mirza MD Primary Care Provider Toby Marquez MD Unavailable [phone] Jessy Bates CLINICAL TRANSFORMATION SPECIALIST Unavailable [phone] Matt Zarate MD Unavailable Erika Devine MD Unavailable [phone] Shelia Louis RN Unavailable [phone] Re Silva RN Unavailable Unavailable Yanet Britton Unavailable Unavailable Encounter Details Date Type Department Care Team (Late st Contact Info) Description 04/03/2018 Telephone [facility] Cardiology [address] [facility] Medicine [address]th [place] [address] [place] [address] Abelardo Guidry MD [address] [facility] [address] [place] [address] Social History Tobacco Use Types Packs/Day Years Used Date Smoking Tobacco: Former Smokeless Tobacco: Never Alcohol Use Standard Drinks/Week Comments No 0 (1 standard drink = 0.6 oz pur e alcohol) Sex and Gender Information Value Date Recorded Sex Assigned at Not on file 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 Gender Identity Not on file Sexual Orientation [...] documented as of this encounter Care Teams Corporate Development Analyst Relationship Specialty Start Date End Date Killian Coppola MD [address] [place] [address] PCP - General Family Medicine 09/23/17 12/20/18 No, Physician PCP - General 12/21/18 04/11/19 Fabio Enamorado DO PCP - General Internal Medicine 04/12/19 06/16/19 Fabio Enamorado DO PCP - General 06/17/19 09/16/19 Guillermo Mirza MD [address] [place] [address] PCP - General Family Medicine 09/17/19 Angela Hennessy MD [address] [facility] [place] [address] Referring Physician Endocrinology Diabetes & Metabolism 12/15/17 Angela Hennessy MD [address] [facility] [place] [address] Referring Physician Endocrinology Diabetes & Metabolism 02/16/18 04/11/19 Merissa Davies MD Referring Physician Cardiology 06/11/19 Toby Marquez MD [address] [place] [address] [address] Referring Physician Gastroenterology 10/19/19 Jessy Bates NP [address] [facility] [address] [address] Nurse Practitioner Nurse Practitioner 07/23/21 Matt Zarate MD [address] [facility] [address] [address] Referring Physician Cardiology 07/30/23 Erika Devine MD [address] [place] [address] [address] [facility] [address] [place] [address] Consulting Physician Nephrology 07/30/23 Shelia Louis, JULISSA [address] [address] SHOP Outpatient Sdv Pilot/Navigator/Dds Operator 08/26/23 09/21/23 Re Silva RN Heart Failure Coordinator 08/27/23 Yanet Britton Primary Electric Meter Tester Shop 12/16/24 documented as of this encounter
--- OUTSIDE RECORDS SUMMARY | 2024-12-17 13:44 | XMS_ITS | Encounter Summary ---
Author Organization [facility] Address [address] [place] [address] Care Team Providers Care Vp Training Name Role Phone Unavailable Primary Care Provider Unavailabl e Encounter Details Date Type Department Care Team (Latest Contact Info) Description 2007 Outpatient Historical HIS CARD RECREATION TEACHER Ender Arvizu MD [address] [address] Other Nonspecific Abnormal Cardiovascular System Function Study Social History Tobacco Use Types Packs/Day Years Used Date Smoking Tobacco: Never Assessed Sex and Gender Information Value Date Recorded Sex Assigned at Not on file Legal Sex Male 5:29 AM NET APPLICATION ARCHITECT Gender Identity Not on file Sexual Orientation Not on file documented as of this encounter Plan of Treatment Not on file documented as of this encounter Procedures Procedure Name Priority Date/Time Associated Diagnosis Comments CKMB W/REFLEX CK Routine 04/11/2007 5:15 AM NET APPLICATION ARCHITECT TROPONIN Routine 04/11/2007 5:15 AM NET APPLICATION ARCHITECT POC ACTIVATED CLOTTING TIME Routine 2007 1:23 PM NET APPLICATION ARCHITECT documented in this encounter Results * TROPONIN (04/11/2007 5:15 AM NET APPLICATION ARCHITECT) TROPONIN T <0.01 <=0.03 ng/mL INTERFACE SYSTEM TROPONIN T INTERP Negative INTERFACE SYSTEM 04/11/2007 5:15 AM NET APPLICATION ARCHITECT us Ender Maravilla MD CHEMISTRY ORDERABLES Edit ed INTERFACE SYSTEM Refer to clinic/hospital department * CKMB W/REFLEX CK (04/11/2007 5:15 AM NET APPLICATION ARCHITECT) CKMB 2.5 <=6.7 ng/mL INTERFACE SYSTEM CKMB INTERP Negative INTERFAC E SYSTEM 04/11/2007 5:15 AM NET APPLICATION ARCHITECT Ender Maravilla MD CHEMISTRY ORDERABLES Edit ed Performing Organization Address [facility] Phone Number INTERFACE SYSTEM Refer to clinic/hospital department * POC ACTIVATED CLOTTING TIME (2007 1:23 PM NET APPLICATION ARCHITECT) ACT POC 173 Seconds INTERFACE SYSTEM Comment: Note sheath pull range change effective 09/20/2005. ACT value for sheath pull at [facility] has been established to be < or = to 1 40. (See also Nursing Procedures for sheath pull in related nursing areas) 2007 1:23 PM NET APPLICATION ARCHITECT Ender Maravilla MD POINT OF CARE TESTING Julián tex Performing Organization Address [facility] Phone Number INTERFACE SYSTEM Refer to clinic/hospital department documented in this encounter Visit Diagnoses Diagnosis Other nonspecific abnormal cardiovascular system function study documented in this encounter
--- OUTSIDE RECORDS SUMMARY | 2024-12-17 13:44 | XMS_ITS | Clinical Summary ---
Author Organization [facility] Address [address] [place] [address] Care Team Providers Care Reconciliation Specialist Name Role Phone Angela Hennessy MD Unavailable [phone] Merissa Davies MD Unavailable [phone] Guillermo Mirza MD Primary Care Provider Toby Marquez MD Unavailable [phone] RehgJessy NP Unavailable [phone] Matt Zarate MD Unavailable Erika Devine MD Unavailable [phone] Re Silva RN Unavailable Unavailable Yanet Britton Unavailable Unavailable Allergies Active Allergy Reactions Criticality Noted Date Comments Codeine Hives Medium Medications aspirin 81 mg tablet take 1 tablet (81MG) by oral route every day 0 2 Active Euthyrox 200 mcg tabletIndications :hypothyroidism Take 1 tablet (200 mcg total) by mouth every morning One pill daily for 5 days, 1/2 pill on Saturdays and none on Sundays 1 Active pen needle, diabetic (BD Ultra-Fine Adilene Pen Needle) 32 gauge x 5/32 needle Using one daily with tresiba 100 each 1 4 Active Additional Information Patient not taking.Reported on 09/23/2024 nitroglycerin (NITROSTAT) 0.[address] 1 tablet (0.4 mg total) under the tongue every 5 (five) minutes as needed for chest pain 90 tablet 11 4 Active insulin syringe-needle U-100 1 mL 31 gauge x 5/16 syringe Inject 1 Syringe under the skin 4 (four) times a day 400 each 4 Active bumetanide (BUMEX) 2 mg tabletIndications :Edema,CHF Take 1 tablet (2 mg total) by mouth daily as needed (prn) 130 tablet 3 4 Active sacubitriL-valsar meyer (ENTRESTO) 24-26 mg tabletIndications :chronic heart failure Take 1 tablet by mouth 2 (two) times a day 180 tablet 3 4 Active linaCLOtide (Linzess) 72 mcg capsuleIndication s:Chronic idiopathic constipation Take 1 capsule (72 mcg total) by mouth daily 30 capsule 11 4 025 Active isosorbide mononitrate ER (IMDUR) 30 mg 24 hr tablet Take 3 tablets (90 mg total) by mouth daily 90 tablet 11 4 025 Active atorvastatin (LIPITOR) 40 mg tablet TAKE 1 TABLET BY MOUTH ONCE DAILY AT BEDTIME 90 tablet 4 Active ezetimibe (ZETIA) 10 mg tablet TAKE 1 TABLET DAILY 90 tablet 3 4 Active NovoLOG 100 unit/mL vial for injectionIndicati ons:Uncontrolled type 2 diabetes mellitus with hyperglycemia (HCC) INJECT 50 UNITS WITH BREAKFAST, 70 UNITS AT SUPPERTIME, PERHAPS 10 UNITS AT AN EVENING SNACK; PLUS 5:10 CORRECTION FOR BLOOD GLUCOSE GREATER THAN 150, MAXIMUM 135 UNITS PER DAY. 90 mL 1 5 Active Additional Information Patient not taking.Reported on 09/23/2024 insulin U-500 syringe-needle 1/2 mL 31 gauge x 15/64 syringeIndication s:DM type 2 without retinopathy (HCC) Use as directed 3 times a day. 100 each 5 Active Additional Information Patient not taking.Reported on 09/23/2024 carvediloL (COREG) 6.25 mg tablet Take 1 tablet (6.25 mg total) by mouth 2 (two) times a day with meals 60 tablet 11 5 026 Active ticagrelor (BRILINTA) 90 mg tabletIndications :cardiovascular disease Take 1 tablet (90 mg total) by mouth 2 (two) times a day 60 tablet [address] (PROTONIX) 40 mg EC tablet Take 1 tablet by mouth twice daily 60 tablet 5 5 Active blood-glucose sensor (Dexcom G7 Sensor) device Activ e tirzepatide (Mounjaro) 2.5 mg/0.5 mL pen injector injectionIndicati ons:Uncontrolled type 2 diabetes mellitus with hyperglycemia (HCC) Inject 0.5 mL (2.5 mg total) under the skin every 7 days 2 mL 3 5 Active dapagliflozin propanediol (FARXIGA) 10 mg tablet Take 1 tablet by mouth once daily 30 tablet 3 5 Active gabapentin (NEURONTIN) 300 mg capsuleIndication s:Diabetic Peripheral Neuropathy,Neurop athic Pain Take 1 capsule (300 mg total) by mouth 2 (two) times a day 180 capsule 2 5 Active insulin regular U-500 (HumuLIN R) 500 unit/mL CONCENTRATED vial for injectionIndicati ons:Diabetes Mellitus with Severe Insulin Resistance Inject 20 unit marking on U-100 syringe (100 Units total) under the skin 3 (three) times a day 54 mL 3 5 Active ergocalciferol (VITAMIN D) 50,000 unit capsule Take 1 capsule by mouth once a week 4 capsule 5 Active Active Problems Problem Noted Date Diagnosed Date CKD (chronic kidney disease) stage 3, GFR 30-59 ml/min 09/14/2024 Anemia in stage 3 chronic kidney disease 024 NSTEMI (non-ST elevated myocardial infarction) 0 09/03/2023 Exertional dyspnea 08/22/2023 Assessment & Plan (08/22/2023 12:56 PM CDT): - suspect anginal equivalent, no significant volume overload on exam but limited by habitus - increased imdur to 60 mg, consider up titration for symptoms - NTG PRN - diuresis as elsewhere - NPO for L/RHC in case it can be done today - could also consider side effect of brillinta if eval is negative CAD (coronary artery disease) 08/22/2023 Assessment & Plan (08/22/2023 1:07 PM CDT): Coronary artery disease. He is status post PCI in 2000 and 2007. He has a history of acute anterior myocardial infarction in August 2010. At that point, he required coronary artery bypass grafting with a saphenous vein graft to the right PDA, and VERMA to the LAD. He also required an LV aneurysm resection with Dacron patch paced prior to the operation. Repeat LHC December 2022, PCI with ИВАН staged intervention (LM/lcx with geena ИВАН and pci to the SVG to the RCA with 4 xx 18 mm geena). LHC and PCI to proximal circumflex June 2023. - pt c/o exertional dyspnea but no report of chest pain - continue ASA and Brilinta - continue home statin daily - Imdur and PRN NTG as elsewhere - plan for L/RHC Hypokalemia 08/22/2023 Assessment & Plan (08/22/2023 1:25 PM CDT): K 3.2 with AM labs. 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 Last echo, limited follow up TTE 07/23/2023 with ejection fraction visually estimated at 25%. Per patient, he sees Dr. Guidry and Geno Centeno NP in the outpatient setting and he was admitted for L/RHC as well as IV diuresis. BNP was 1553 on 08/19/23. Pt c/o STACK but states this is not new. - no significant volume overload on exam but limited by habitus - plan for L/RHC - was started on Bumex 2 mg PO BID on admit, continue this for now in setting of hypokalemia, plan to start Bumex 2 mg IV BID and metolazone 10 mg daily once K repleted - continue Coreg 6.25 mg BID, Farxiga 5 mg daily, Entresto 24-26 mg BID Angina pectoris, unstable 08/20/2023 STEMI (ST elevation myocardial infarction) 07/18 Pseudophakia of both eyes 04/11/2023 Assessment & Plan (12/08/2024 11:40 AM CDT): -s/p YAG cap x 10/[address] Gomez -Failled recent drivers test, though vision grossly stable today -BCVA 20/40 OD/OS today; no CME noted today on OCT -Filled out DMV form for pt. Explained that based on today's uncorrected vision should be able to pass w/o spec requirement -Etiology of reduced vision unclear given clear media and no retinal pathology on DFE/OCT. -VA's since establishing care around 20/30-20/40 OD, OS. May have mild amblyogenic factor OU -Reassuring that vision is stable today -RTC 1 year DFE Assessment & Plan (12/08/2023 1:22 PM CDT): -s/p YAG cap x 10/[address] Gomez -doing well; new MRx issued to pt today -BCVA 20/40 OD/OS today; no CME noted today, may have mild amblyogenic factor OU -RTC 1 year DFE Assessment & Plan (04/18/2023 11:23 AM CLOTH WEAVER): POW #1 s/p CE/PCIOL left eye (OS) - endorsing ND, not bothered, discussed with patient should resolve, retinal detachment (RD) precautions - Doing well, Va 20/70 PH 20/40, may be due to cystoid macular edema (CME)/PCO - stop Ofloxacin QID OS - cont Prednisolone QID left eye (OS), poss CME/DME - cont Ketorolac QID OS, poss CME/DME - Reviewed signs/symptoms endophthalmitis, RT/RD; patient to call immediately if any worsening vision, pain, redness, flashes/floaters/curtains - No lifting/bending/swimming. Rajan shield while sleeping, protective eyewear during day. - RTC 1 month Assessment & Plan (04/11/2023 8:22 AM CLOTH WEAVER): POD #1 s/p CE/PCIOL OS - Doing well - Prednisolone QID OS - Ofloxacin QID OS - Ketorolac QID OS - Reviewed signs/symptoms endophthalmitis, RT/RD; patient to call immediately if any worsening vision, pain, redness, flashes/floaters/curtains - No lifting/bending/swimming. Rajan shield while sleeping, protective eyewear during day. 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 Assessment & Plan (07/23/2021 7:07 AM CDT): Fully vaccinated, eligible for booster. DM type 2 without retinopathy 07/19/2020 Assessment & Plan (12/08/2023 1:23 PM CDT): -no retinopathy noted today -ed pt on tight BG control and A1c below 7.0 to reduce risk of ophthalmic complications -follow with annual DFE; sooner with issues Assessment & Plan (12/09/2022 2:43 PM CDT): - A1C 7.4 - No history of DME or injections Plan - Proceed with CE/IOL, no special considerations required Assessment & Plan (09/20/2022 10:21 AM CDT): No retinopathy noted on dilated fundus exam today. Educated pt on importance of BS/BP control to reduce risk of ocular disease. Monitor annually. Assessment & Plan (08/10/2021 1:08 PM CDT): No retinopathy noted on dilated fundus exam today. Educated pt on importance of BS/BP control to reduce risk of ocular disease. Monitor annually. Assessment & Plan (07/19/2020 1:55 PM CDT): Patient was educated on the importance of maintaining tight blood glucose control in order to reduce the risk for diabetic ocular complications. Annual DFEx Amaurosis fugax of right eye 05/01/2020 Overview (05/01/2020): 5-10 minutes - late March 2020 Assessment & Plan (05/01/2020 4:43 PM CLOTH WEAVER): 5-10 minutes - late March 2020. Scheduled for echocardiogram and carotid ultrasound 05/08/20 Swelling 09/17/2019 Overview (09/17/2019): 6-6-20 at ICD site Empiric tx with PO Keflex resolved Cardiomyopathy, ischemic 05/28/2019 Overview (05/28/2019): Added automatically from request for surgery [id number] Ptosis of both eyelids 01/19/2019 Assessment & Plan (12/08/2024 11:07 AM CDT): -not interested in surgery at this time -MRD1 measurements recorded today -Told pt can refer for sx in future if wishes Assessment & Plan (12/08/2023 1:22 PM CDT): -not interested in surgical intervention at this time -follow Assessment & Plan (09/20/2022 10:21 AM CDT): NVS, observe. Assessment & Plan (08/10/2021 1:08 PM CDT): NVS, observe. Assessment & Plan (01/19/2019 8:57 AM CDT): Bilateral and symmetrical, Pt reports not functionally limiting at present. Offered surgical consult, pt declines. Observe. Cardiac arrest 09/23/2017 Sinus node dysfunction 09/23/2017 Vitreous syneresis 05/02/2015 Assessment & Plan (09/20/2022 10:22 AM CDT): Retina attached 360, no RT/RD. Discussed retinal precautions - pt to call immediately with new or worsening floaters/flashes/curtain in vision. Assessment & Plan (07/19/2020 1:50 PM CDT): Monitor. Discussed signs and symptoms of Retinal tears or detachments. Pt understands to call immediately if noted. Assessment & Plan (01/19/2019 8:56 AM CDT): Stable. Observe. Hypothyroidism 03/27/2015 Assessment & Plan (09/03/2023 4:04 PM CDT): Continue home Synthroid 200 mcg daily Assessment & Plan (09/03/2023 3:00 PM CDT): Continue home Synthroid Assessment & Plan (08/22/2023 1:25 PM CDT): - continue home Synthroid Assessment & Plan (10/28/2022 2:48 PM CDT): TSH was OK on last check, will defer a recheck. No change in dose. Assessment & Plan (2022 1:30 PM CLOTH WEAVER): Clinically euthyroid, receiving approximately 157 mcg levothyroxine daily. Needs follow-up labs Assessment & Plan (07/24/2021 8:12 AM CDT): Clinically euthyroid, doing well Assessment & Plan (02/19/2021 2:28 PM CLOTH WEAVER): -Appears euthyroid on replacement -Last TFT in July 2020 indicated over-replacement -Dosage was adjusted to Euthyrox 200 mcg 6 days a week -Reviewed proper ways to take levothyroxine replacement -Repeat TFT ordered Assessment & Plan (11/15/2020 5:17 PM CDT): Clinically euthyroid, with adjustment in dosage. Most recent TSH within target Assessment & Plan (05/02/2020 9:44 AM CLOTH WEAVER): Symptomatically euthyroid, needs follow-up labs Assessment & Plan (10/20/2019 3:19 PM CDT): Currently symptomatically euthyroid, but his vamp liner increased his levothyroxine dose recently. I do not have access to the labs on which this was based and his TSH was normal in March. Advised him to contact me in the future for any thyroid medication adjustments. Assessment & Plan (04/14/2019 10:14 AM CLOTH WEAVER): Clinically euthyroid, recheck TSH Assessment & Plan (09/11/2018 1:32 PM CDT): Clinically euthyroid, but needs follow-up labs Assessment & Plan (10/20/2017 1:06 PM CDT): Take levothyroxine 175 mcg daily Vitamin D deficiency 03/27/2015 Assessment & Plan (2022 1:31 PM CLOTH WEAVER): No longer taking daily vitamin-D, need to recheck labs Assessment & Plan (07/24/2021 8:13 AM CDT): No longer taking daily vitamin-D, consider checking level with next labs Assessment & Plan (11/15/2020 5:16 PM CDT): Continue long-term supplement Assessment & Plan (05/02/2020 9:49 AM CLOTH WEAVER): Not currently on supplement. Significant weight loss. Recheck level with next blood draw. Assessment & Plan (10/20/2019 3:18 PM CDT): Continue long-term supplement Assessment & Plan (09/11/2018 1:33 PM CDT): With history of nephrolithiasis, need to recheck vitamin-D level Chronic systolic congestive heart failure 2013 Ischemic cardiomyopathy 08/14/2013 Overview (09/15/2017): Ischemic cardiomyopathy Assessment & Plan (09/04/2023 9:21 AM CDT): Recent TTE in June moderate LVE with ejection fraction of 25%. Followed by Dr. Guidry - Appears mildly volume overloaded today, but clear CXR and on room air. Discharge dry weight 215 lbs - NT-proBNP 1387 (decreased compared to prior) - Given IV lasix at OSH, continue PO bumex here. Diuresing well, weight now 215lbs (prior 219-on admission). - Daily standing weight, strict I&Os, 2g Na diet - Continue home GDMT: Dina hyde Farxiga - tele Assessment & Plan (09/03/2023 2:54 PM CDT): Recent TTE in June moderate LVE with ejection fraction of 25%. Followed by Dr. Guidry - Appears mildly volume overloaded today, but clear CXR and on room air. Discharge dry weight 215 lbs - NT-proBNP pending - Given IV lasix at OSH, continue PO bumex here - Daily standing weight - Continue home GDMT: Dina hyde Farxiga History of coronary artery bypass surgery 2013 Overview (07/04/2016): Hx of CABG Uncontrolled type 2 diabetes mellitus with hyper glycemia 08/14/2013 Overview (09/15/2017): DM (diabetes mellitus) Assessment & Plan (12/08/2024 11:38 AM CDT): -Reassured pt no diabetic retinopathy on exam today. -OCT today w/o edema OU -Discussed importance of strict blood glucose control to reduce risk of ocular disease and vision loss. -Monitor with annual DFE or sooner if changes to vision occur. Assessment & Plan (09/03/2023 4:05 PM CDT): Recently seen by endocrinology in clinic with new regimen of Tresiba 75 units in the morning and Novolog - 60u qAM, 50u with supper (does not eat lunch) and 10u with snack - Dose reduced insulin regimen with SSI - Continue Farxiga as above - glucose check AC and HS Assessment & Plan (09/03/2023 2:58 PM CDT): Recently seen by endocrinology in clinic with new regimen of Tresiba 75 units in the morning and Novolog - 60u qAM, 50u with supper (does not eat lunch) and 10u with snack - Dose reduced insulin regimen with SSI - Continue Farxiga as above Assessment & Plan (08/22/2023 1:27 PM CDT): Home tresiba 60 units qam, novolog 60 units w/ bkfast, 50 at dinner. Last Hgb A1c 7.8. - glucose POC TID with meals and nightly - started lantus 50 units, 30 units with meals, HDSSI - hold Tresiba - check Hgb A1c--7.3 - consistent carb diet when not NPO Assessment & Plan (10/28/2022 4:01 PM CDT): Pt is taking high doses of rapid acting insulin, and interestingly doing a reasonable job with it. However, he is at risk for hypoglycemia with this regimen, and his BG show too much variability. He is also not taking the cardio-protective agents. New diabetes regimen: - Trulicity, 0.75 mg weekly (this may reduce your appetite a bit) - Toujeo, start with 35 units in the evening - do not change this dose until we re-evaluate your glucoses - Novolog, 12 - 18 or 20 units before meals, if carb counting, consider 1:5 grams of carb. Sliding scale: < 150 - no additional insulin 150 - 175 +1 175 - 200 +2 200 - 225 +3 225 - 300 +4 If only drinking coffee in the morning, do 2 units + SSI So, instead of 30 - 40 units of Novolog, take a much lower dose if not eating. Assessment & Plan (2022 1:30 PM CLOTH WEAVER): Glucoses variable, but largely because of issues with timing and amount of insulin with the evening meal. Need to minimize risk of hypoglycemia. Assessment & Plan (07/24/2021 8:14 AM CDT): Although some mealtime fluctuation, particularly with the evening meal, his numbers are within a reasonable margin of safety so we can continue current medication, for now. Assessment & Plan (02/19/2021 2:27 PM CLOTH WEAVER): -Currently taking Novolog only with meals -Dexcom download indicates a relatively stable glucose pattern with little variability. He occasional drifts up slightly overnight, but not enough to restart basal insulin. Will continue same insulin doses for now. -Discussed diet and activity modifications. -Advised to call with any concerns/complaints regarding glucose readings -Eye exam is up to date Assessment & Plan (11/15/2020 5:16 PM CDT): Diabetes markedly controlled, within target with diet alone and no longer on insulin Assessment & Plan (05/02/2020 9:45 AM CLOTH WEAVER): Glucoses markedly improved with weight loss, but history of extreme insulin resistance. He will likely need adjustments in his insulins as his restarted eating regular food. Also needs follow-up labs. He also needs a more consistent insulin/medication schedule. Assessment & Plan (10/20/2019 3:18 PM CDT): Glycemic control markedly improved, reducing insulin and losing weight. He is able to do this safely because of his Dexcom CGM. Since his thyroid was recently changed, we will defer lab work for about two or three weeks and follow-up. Assessment & Plan (04/14/2019 10:16 AM CLOTH WEAVER): Glucoses tend to go up overnight, so he would benefit from some NPH at supper time which should have its peak effect between 2-3 AM. We would therefore adjust his other insulins accordingly. Needs follow-up labs and minimize risk of hypoglycemia Assessment & Plan (01/19/2019 8:56 AM CDT): No diabetic retinopathy on dilated exam today. Stressed the importance of glycemic control in preventing diabetic eye disease. Assessment & Plan (09/11/2018 1:32 PM CDT): Intelligent, motivated. Needs adjustments in insulins to minimize afternoon hypoglycemia and late evening hyperglycemia. Also needs follow-up labs Assessment & Plan (06/03/2018 9:03 PM CLOTH WEAVER): Diabetes is fairly well controlled but self increased insulin and timing of insulin is off in evening. I asked him to take 20 units with dinner at 4 pm and 20 u at 8 pm with the snack and do not take 60 U all at one time Reduce Toujeo to 90 units per day. Discussed avoidance of hypoglycemia, timing of insulin and food BLOOD SUGAR MEAL DOSE TO BE ADDED TO BASE < 100 SUBTRACT 2 UNITS 100-150 0 151-175 1 176-200 2 201-225 3 226-250 4 251-275 5 276-300 6 301-325 7 326-350 8 Assessment & Plan (02/11/2018 5:24 PM CLOTH WEAVER): Continue same plan, caution regarding overcorrecting during day Off of VGO now Coronary arteriosclerosis in [place] artery 08/14 Overview (07/05/2016): CAD in [place] artery Assessment & Plan (09/04/2023 9:19 AM CDT): Recent admission after episodic SOB over weeks. Underwent R/LHC 08/22 with ingrowth into the previously placed LM-LCx stent from 7 months prior versus residual thrombus s/p ИВАН and low R and L heart filling pressures. Unlikely that current presentation is new ACS given modest troponin, lack of ECG changes and atypical pain different from prior angina - Troponin 58 on admission, now 43. - ECG without any obvious ST/T changes concerning for new ischemia - Continue aspirin, high intensity statin and ticagrelor - Continue carvedilol 6.25 mg BID - continue Imdur 30 mg daily - Daily standing weights and strict I's&O's -tele Assessment & Plan (09/03/2023 2:56 PM CDT): Recent admission after episodic SOB over weeks. Underwent R/LHC 08/22 with ingrowth into the previously placed LM-LCx stent from 7 months prior versus residual thrombus s/p ИВАН and low R and L heart filling pressures. Unlikely that current presentation is new ACS given modest troponin, lack of ECG changes and atypical pain different from prior angina - Troponin 58 on admission, continue to trend to peak - ECG without any obvious ST/T changes concerning for new ischemia - Continue aspirin, high intensity statin and ticagrelor - Continue carvedilol 6.25 mg BID - Start Imdur 30 mg daily - Daily standing weights and strict I's&O's Assessment & Plan (07/24/2021 8:12 AM CDT): Need optimal glycemic control, minimize risk of hypoglycemia. Assessment & Plan (04/14/2019 10:14 AM CLOTH WEAVER): Need to minimize risk of hypoglycemia Elevated liver enzymes 01/08/2013 Assessment & Plan (10/28/2022 2:46 PM CDT): Recheck LFTs with weight regain. Benign colonic polyp 01/07/2013 Chronic renal impairment 01/07/2013 Assessment & Plan (10/28/2022 2:46 PM CDT): Check kidney function and consider referral to nephrology. This appears to be non-proteinuric CKD. K+ will be of interest - consider spironolactone or kerendia? Assessment & Plan (2022 1:30 PM CLOTH WEAVER): Need optimal glycemic control, minimize risk of hypoglycemia. Assessment & Plan (11/15/2020 5:17 PM CDT): Decreased insulin requirements, minimizing risk of hypoglycemia Assessment & Plan (05/02/2020 9:43 AM CLOTH WEAVER): Need to minimize risk of hypoglycemia Assessment & Plan (04/14/2019 10:14 AM CLOTH WEAVER): Increased risk of hypoglycemia. Needs optimal glycemic control Hyperlipidemia 01/07/2013 Assessment & Plan (09/03/2023 4:04 PM CDT): Continue home statin, Fenofibrate, and zetia Assessment & Plan (09/03/2023 2:59 PM CDT): Continue home statin and zetia Assessment & Plan (10/28/2022 2:47 PM CDT): LDL is 80's on high intensity statin + fenofibrate. The target is <55 mg/dL. Consider ezetimibe? Assessment & Plan (2022 1:31 PM CLOTH WEAVER): Continue statin and fenofibrate, optimize glycemic control Assessment & Plan (07/24/2021 8:12 AM CDT): Continue statin and fenofibrate, optimize glycemic control Assessment & Plan (02/19/2021 2:29 PM CLOTH WEAVER): -Will continue statin as it is being tolerated without side effects -Repeat lipid panel Assessment & Plan (05/02/2020 9:44 AM CLOTH WEAVER): Continue statin and fenofibrate, optimize glycemic control Assessment & Plan (04/14/2019 10:15 AM CLOTH WEAVER): Continue statin and fenofibrate, optimize glycemic control and recheck lipid panel Assessment & Plan (09/11/2018 1:33 PM CDT): Continue statin, fibrate, and maximize glycemic control Nephrolithiasis 01/07/2013 Nocturia 01/07/2013 Abnormal sexual function 01/07/2013 Essential hypertension 09/10/2011 Assessment & Plan (02/16/2021 12:25 PM CLOTH WEAVER): -Will continue same antihypertensive medications at this time. Assessment & Plan (09/11/2018 1:33 PM CDT): Blood pressure within target, managed by his other doctors ICD (implantable cardioverter-defibrillator) in place 05/27/2011 Overview (09/15/2017): Medtronic Protecta DDD/ICD implanted 05/27/2011 for ICM/VF. Juwan (Card) Simeon (EP) - [employer] [facility] 09[facility]14/2016/NL Resolved Problems Problem Noted Date Diagnosed Date Resolved Date Posterior capsular opacification, both eyes 11/20/2023 12/08/2023 Assessment & Plan (11/20/2023 11:12 AM CDT): Here for YAG Cap both eyes (OU) Tolerated procedure well Follow up with Dr Santana Pseudophakia of right eye 05/02/2023 Assessment & Plan (10/24/2023 10:06 AM CDT): Myopic surprise OU MRx has been lessening - now -2.00 OD and -1.25 OS Dense PCO No need for lens exchange, VA improved Plan for YAG OU in 1 month Assessment & Plan (06/20/2023 12:49 PM CDT): Patient with myopic surprise both eyes (-3.50 OU) Mac OCT wnl Denies LASIK or CL use DFE stable Lenses without capsular distension Ensured correct IOL Master and lens implanted Discussed might reduce over time Will follow 4 weeks with MRx, sooner for concerns Assessment & Plan (05/09/2023 11:10 AM CLOTH WEAVER): POW1 Extraction Cataract - Phacoemulsification And Lens Implant - Right Postoperative instructions were given. The patient is to use: Taper PF 3-2-1 D/C Moxi Signs, symptoms of retinal detachment, tear, hole, and endophthalmitis and hypotony were reviewed and the patient is to call immediately for concerns. They can resume normal activity. We discussed that things should improve until they stabilize. Should there be any worsening of pain, vision, or redness the patient is to call. Assessment & Plan (05/02/2023 8:30 AM CLOTH WEAVER): POD1 Extraction Cataract - Phacoemulsification And Lens Implant - Right Keep PF and NSAID QID OS Postoperative instructions were given. The patient is to use: moxifloxacin QID X 1 week Prednisolone Acetate 1% QID Patient is to wear the shield at bedtime X 1 week. Signs, symptoms of retinal detachment, tear, hole, and endophthalmitis were reviewed and the patient is to call immediately for concerns. We discussed that things should improve until they stabilize. Should there be any worsening of pain, vision, or redness the patient is to call. Followup 1 week or sooner prn issues. Refractive error 07/19/2020 12/08/2023 Assessment & Plan (07/19/2020 1:56 PM CDT): Discussed that vision may not be subjectively better with Rx vs OTC reading glasses. visual acuity (VA) may fluctuate with blood glucose fluctuations. 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 Patient experiencing glare and decreased VA over the last ~2.5 years - Exam today with cataracts (NS, CS, and PSC components OU, OS>OD) - Interested in proceeding with CE/IOL OS at this time The patient understands the risks, benefits, alternatives and wishes to proceed with cataract surgery. We discussed the target and the patient elects target plano. We discussed toric and multifocal lens options as well as laser assisted wounds however I prefer a manual technique here. The patient understands glasses are a possibility and is comfortable proceeding with a monofocal lens. Discussed risk of bleeding, infection, need for another surgery and rarely vision loss. Flomax: no Dilation: 8mm Need for perioperative steroids: no Book Phaco/IOL/ left then right eye. Assessment & Plan (09/20/2022 10:21 AM CDT): Educated pt on signs/symptoms of cataracts. Discussed option of CE/PCIOL - pt would like to schedule next available evaluation with cataract surgeon. Assessment & Plan (08/10/2021 1:08 PM CDT): Educated pt on signs/symptoms of cataracts. Discussed option of CEIOL, pt prefers to observe for now. Pt to return to clinic with new or worsening vision changes. Monitor annually. Assessment & Plan (07/19/2020 1:50 PM CDT): Discussed findings and options. Patient elects to defer treatment at this time. Monitor. Assessment & Plan (01/19/2019 8:57 AM CDT): Surgery not yet indicated. Observe. Macular degeneration 01/08/2013 018 Encounters Date Type Department Care Team Description 12/08/2024 10:00 AM CDT Office Visit [facility] Medicine Ophthalmology [address] [place] [address] Sascha Cordoba, OD Uncontrolled type 2 diabetes mellitus with hyperglycemia (HCC) (Primary Dx); Ptosis of both eyelids; Pseudophakia of both eyes 10/04/2024 Orders Only [facility] Medicine Cardiology [address] [place] [address] Merissa Davies MD 09/23/2024 11:49 AM CDT - 09/23/2024 11:59 PM CDT Hospital Encounter [facility] [address] [facility] [address] [place] [address] Chato Burt MD Abdominal pain; Chest pain, unspecified type Discharge Disposition: Discharge to home or self care from Last 3 Months Immunizations Immunization Administration Dates Next Due Influenza, Quadrivalent, Brisa l Culture-based MDCK, Antibiotic Free, Intramuscular 04/04/2018 Influenza, Quadrivalent, Brisa l Culture-based MDCK, Preservative Free, Antibiotic Free, Intramuscular 01/04/2019 Influenza, Quadrivalent, Spl it, Preservative Free, Intramuscular 12/19/2019 Influenza, Trivalent, Preser vative Free, Intramuscular 03/05/2016,03/05/2016,01/24/2015,02/19,02/25/2012 Influenza, Unspecified 12/29/2018,12/29/2018,05/2013 [employer] (J&J) SARS-CoV-2 Vaccination 01/10/2023 Moderna SARS-CoV-2 Monovalen t Vaccination (12+ YRS) 09/03/2021,01/24/2021 Moderna Sars-cov-2 Bivalent Vaccine 50 Mcg/0.5 mL (12+ YRS)-Blue/Rincon 01/30/2022 Surgical History Surgery Date Site/Laterality Comments CARDIAC DEFIBRILLATOR PLACEMENT 06/17/2019 Medtronic, x3 05/2019 and 11/2021 LITHOTRIPSY unknown date CORONARY ARTERY BYPASS GRAFT 06/24/2010 x2 COLONOSCOPY 10/04/2022 HERNIA REPAIR long time ago CARDIAC STENT PLACEMENT 03/31/2000 - 03/30/2001 x3 stents 2000, 2006, 2010 CARDIAC CATHETERIZATION 08/01/2015 CARDIAC CATHETERIZATION 01/17/2023 Bilateral INSERT / REPLACE / REMOVE PACEMAKER 11/26/2021 replacement INSERT / REPLACE / REMOVE PACEMAKER 11/29/2021 replacement CARDIAC STENT PLACEMENT 01/31/2023 PCI CARDIAC STENT PLACEMENT 02/14/2023 PCI Medical History Medical History Date Comments Hx Other Medical Ischemic Cardio myopathy Cardiovascular disease Coronary Artery Disease Hx Other Medical Anterior IL w/ LV Aneurysm History of other diseases of the circulatory system, not elsewhere classified Acute Myocardial Infarction - 2010 (Added by TW Conv) Personal history of nicotine dependence Former smoker - Quit 07/28/19 13; prior 1 1/2 ppd for 35 years (Added by TW Conv) Nontraumatic intracerebral hemorrhage Hemorrhagic stroke - with IL (Added by TW Conv) Renal colic Renal colic - (A dded by TW Conv) Personal history of other di seases of the circulatory system History of acute congestive heart failure - (Added by TW Conv) Personal history of other di seases of urinary system History of acute renal failu re - (Added by TW Conv) Old myocardial infarction Past m yocardial infarction - complicated (Added by TW Conv) Calculus of kidney Nephrolithias is - ? type (Added by TW Conv) Vitamin D deficiency Vitamin D d eficiency - (Added by Conv) Hypothyroidism Adult hypothyroi dism - (Added by TW Conv) Type 2 diabetes mellitus wit h hyperglycemia ([facility]) Type 2 diabetes mellitus wit h hyperglycemia, with long-term current use of insulin, Dexcom CGM in place Hypothyroidism Adult hypothyroi dism - (Added by TW Conv) Coronary artery disease GERD (gastroesophageal reflu x disease) Diverticulosis ICD (implantable cardioverter-defibrillator) in place Medtronic Awareness under anesthesia only during procedures with sedation ICD placement and colonoscopy Cataract NSVT (nonsustained ventricul ar tachycardia) ([facility]) 12/24/2022 CHF (congestive heart failure) ([facility]) Family History Medical History Relation Name Comments Heart attack Father Myocardial Infa rction; /Myocardial Infarction; Cause of : Myocardial Infarction/Family history of heart attack - (Added by TW Conv)/Family history of heart attack - (Added by TW Conv) Heart disease Father in his 40s Cancer Mother Cancer - (Added by TW Conv) Coronary artery disease Mother Wesley nary Artery Disease; Hypertension Mother Hypertension; / Hypertension - (Added by TW Conv) Stroke Mother in her 60s Diabetes type II Other 1 Type 2 Diab etes Mellitus - sister (Added by TW Conv) Lupus Other 2 Systemic Lupus Erythematosus - daughter (Added by TW Conv) Coronary artery disease Sister 2 Wesley nary Artery Bypass Graft; Anesthesia problems Neg Hx Glaucoma Neg Hx Macular degeneration Neg Hx Relation Name Status Comments Father (Age 60) Mother Other 1 Other 2 Sister 1 Alive Sister 2 Social History Tobacco Use Types Packs/Day Years Used Date Smoking Tobacco: Former Cigarettes 1.5 36 1 976 - 2012 Passive Smoke Exposure: Never Smokeless Tobacco: Never Tobacco Cessation:Counseling Given: Not Answered Alcohol Use Standard Drinks/Week Comments No 0 (1 standard drink = 0.6 oz pur e alcohol) [facility] Utilities Answer Date Recorded In the past 12 months has e [employer], gas, oil, or water [employer] threatened to shut off services in your home? No 09/04/2023 Social Connection and Isolation Panel Answer Date Recorded In a typical week, how many times do you talk on the phone with family, friends, or neighbors? More than three times a week 09/04/2023 How often do you get togethe r with friends or relatives? More than three times a week 09/04/2023 How often do you attend chur or yazdanism services? 1 to 4 times per year 09/04/2023 Do you belong to any clubs o r organizations such as jain groups, unions, fraternal or athletic groups, or school groups? No 09/04/2023 How often do you attend meet ings of the clubs or organizations you belong to? Never 09/04/2023 Are you , , di vorced, , never , or living with a partner? 09/04/2023 AUDIT-C Answer Date Recorded Q1: How often do you have a drink containing alcohol? Never 09/23/2024 Q2: How many drinks containi ng alcohol do you have on a typical day when you are drinking? Patient does not drink Q3: How often do you have si x or more drinks on one occasion? Never 09/23/2024 Overall Financial Resource Strain (CARDIA) Answe r Date Recorded How hard is it for you to pa y for the very basics like food, housing, medical care, and heating? Not hard at all 09/04/2023 PHQ-2 Answer Date Recorded PHQ-2 Total Score (If total score is 3 or more points, staff should administer the PHQ-9) 0 09/04/2023 Hunger Vital Sign Answer Date Recorded Within the past 12 months, y ou worried that your food would run out before you got the money to buy more. Never true 09/04/19 24 Within the past 12 months, t he food you bought just didn't last and you didn't have money to get more. Never true 09/04/2023 PRAPARE - Transportation Answer Date Re corded In the past 12 months, has l ack of transportation kept you from medical appointments or from getting medications? No 08/2023 In the past 12 months, has l ack of transportation kept you from meetings, work, or from getting things needed for daily living? No 09/04/2023 Housing Stability Vital Sign Answer Salazar e [...] place to sleep or slept in a group home (including now)? No 07/21/2023 Housing Stability Vital Sign Answer Salazar e Recorded In the last 12 months, was t here a time when you were not able to pay the mortgage or rent on time? No 09/04/2023 In the past 12 months, how m any times have you moved where you were living? 0 09/04/2023 At any time in the past 12 m [facility], were you homeless or living in a group home (including now)? No 09/04/2023 Personal Safety Answer Date Recorded Have you ever been in or are you currently in a harmful physical or emotional relationship or is someone making you feel afraid or unsafe? Denies 09/03/2023 Sex and Gender Information Value Date Recorded Sex Assigned at Not on file Legal Sex Male 2:02 AM CLOTH WEAVER Gender Identity Not on file Sexual Orientation Straight 01/18/2019 2: 04 PM CDT Obstetrics History Last Filed Vital Signs Vital Sign Reading Time Taken Comments Blood Pressure 116/66 09/23/2024 12:05 PM CDT Pulse 85 09/23/2024 12:05 PM CDT Temperature 36.6 C (97.8 F) 09/23/2024 12:05 PM CDT Respiratory Rate 16 09/23/2024 12:05 PM CDT Oxygen Saturation 97% 09/23/2024 12:05 PM CDT Inhaled Oxygen Concentration - - Weight 103.9 kg (229 lb) 09/23/2024 12:05 PM CDT Height 167.6 cm (5' 6) 09/23/2024 12:05 PM CDT Body Mass Index 36.96 09/23/2024 12:05 PM CDT Plan of Treatment Health Maintenance Due Date Last Done Comments Prostate Cancer Screening-PSA 1962 DTaP/Tdap/Td Vaccine (1 - Tdap) 1973 Regular Well Visit/Exam 18-64 1980 Pneumococcal vaccine <65 (1 of 2 - PCV) 1981 Lung Cancer Screening 2012 Zoster Vaccine (1 of 2) 2012 Foot Exam 02/03/2019 02/03/2018 Lipid Panel 08/13/2024 08/14/2023, 07/03/2022, 11/19/2021, Additional history exists Depression Screening 09/02/2024 09/03/2023 Covid-19 Vaccine (7 - 2024-2 6 season) 2024 01/10/2023, 01/30/2022, 09/03/2021, Additional history exists Influenza Vaccine (#1) 2024 0, 01/04/2019, 12/29/2018, Additional history exists Hemoglobin A1C 03/16/2025 09/14/2024, 03/31, 08/22/2023, Additional history exists Albumin Creatinine Ratio, Urine 09/01/2025 09/01/2024, 03/09/2024, 10/28/2022, Additional history exists eGFR 09/01/2025 09/01/2024, 02/28, 01/20/2024, Additional history exists Dilated Eye Exam 12/08/2025 12/08/2024, 11/2023, 06/20/2023, Additional history exists Colon Cancer Screening-Colonoscopy 10/04/2032 10/04/2022, 12/16/2012 Hepatitis C Screening Completed 12/07/2012 Hepatitis B Screening Completed 01/07/2013 Colon Cancer Screening-CT Colonography Discontinued 10/04/2022, 12/16/2012 Colon Cancer Screening-DNA Stool Discontinued 10/05/19 23, 12/16/2012 Colon Cancer Screening-FIT Discontinued 10/04/2022, Colon Cancer Screening-Sigmoidoscopy Discontinued 10/04/2022, 12/16/2012 Goals Goal Patient Goal Type Associated Problems Recent Progress Patient-Stated? Author CCM Chronic Pain Care Plan Chronic Care Management Rowena Laguerre, RN Note: Problem: Chronic Pain Goals: 1. Minimize further functional decline 2. Maximize quality of life 3. Control pain Strategies: - Activity/exercise program recommendation - Conservative stepwise pain medicine strategy with multi-disciplinary approach - Recommend healthy lifestyle strategies and compensatory methods as needed Medical Devices Implanted Type Area Print Line Operator Device Identifier Shelf Expiration Date Model / Serial / Lot Terumo Medical Quique Angio-Seal Vip 6fr Closere Device [id number] - [id number] - [id number] Implanted:Qty: 1 on 02/14/2023 by Luan Garcia MD at [facility] Collagen Right: Common Femoral Artery Ter[employer] Quique 09/05/2023 [id number] / [id number] / [id number] Terumo Medical Quique Angio-Seal Vip 6fr Closere Device [id number] - [id number] - [id number] Implanted:Qty: 1 on 08/22/2023 by Micheal Marquez MD at [facility] Collagen Right: Common Femoral Artery Ter[employer]o Medical Quique 04/21/2024 [id number] / [id number] / [id number] Icd-05/27/2011 Implanted:2011 (Quantity not on file) ICD Left: Chest Wall Medtronic Cardiac Rhythm Mgmt Medtronic Cardiac Rhythm Mgmt [id number] Evera Mri Surescrosalie Df-1 Pin Plug Defibrillator Cardiac Xt Dr [place] [id number] - [id number] Implanted:Qty: 1 on 06/17/2019 by Merissa Davies MD at [facility] ICD Left: Chest Wall Medtronic Inc 06/12/2020 [id number] / [id number] / Medtronic Inc Evera Mri Xt Dr [place] Physiocurve Smartshock 82e61il 2 Chamber [id number] - [id number] - [id number] Implanted:Qty: 1 on 11/29/2021 by Nelson Perez MD PhD at [facility] ICD Right: Chest Medtronic Inc 03/13/2023 [id number] / [id number] / Description:ICD generator Medtronic Inc Sprint Quattro Secure S 55cm Df-4 Tripolar Screw Defibrillator [id number] - [id number] - [id number] Implanted:Qty: 1 on 11/29/2021 by Nelson Perez MD PhD at [facility] Lead Right: Heart Medtronic Inc 10/05/2023 [id number] / [id number] / Medtronic Inc Capsurefix Novus 6.2fr 2mm 45cm Bipolar Screw In Implantable 5076-45 - [id number] - [id number] Implanted:Qty: 1 on 11/29/2021 by Nelson Perez MD PhD at [facility] Lead Right: Heart Medtronic Inc 10/14/2023 5076-45 / [id number] / [employer] Lens Iol Posterior Biconvex Optic Single Piece Envista 6.0x12.5 +24.0d Hydrophobic Acrylic [id number] - [id number] - [id number] Implanted:Qty: 1 on 05/01/2023 by Daphney Gomez MD at [facility] Lens Right: Eye [employer] [id number] 10/28/2025 [id number] 0 / [id number] / [id number] Cardiac Stent X 3 Implanted:Qty: 3 Stent N/A: Heart Medtronic Card Vasc Surgery 3.5 X 15mm Geena Burton Rx Coronary Stent [id number] - [id number] - [id number] Implanted:Qty: 1 on 01/31/2023 by Luan Garcia MD at [facility] Stent N/A: Circumflex Coronary Artery Medtronic Card Vasc Surgery 01/14/2025 [id number] / [id number] / [id number] Medtronic Card Vasc Surgery 4.0 X 18mm [place] Burton Rx Coronary Stent [id number] - [id number] - [id number] Implanted:Qty: 1 on 02/14/2023 by Luan Garcia MD at [facility] Stent N/A: Saphenous Vein Graft Medtronic Card Vasc Surgery 10/16/2025 [id number] / [id number] / [id number] [employer] Quique Stent Drug Eluting S Megatron Mr 4.88v49jb [id number] - [id number] - [id number] Implanted:Qty: 1 on 08/22/2023 by Ronan Moreland MD PhD at [facility] Stent N/A: Circumflex Coronary Artery [employer] Quique 09/29/2024 [id number] / [id number] / [id number] Medtronic Cardiac Rhythm Mgmt [id number] Tyrx 2.7x2.5in Medium Envelope Absorbable Polyarylate Minocycline - [id number] Implanted:Qty: 1 on 06/17/2019 by Merissa Davies MD at [facility] Left: Chest Wall Medtronic Inc 07/29/2019 [id number] 2 / / [id number] [employer] Lens Iol Posterior Biconvex Optic Single Piece Envista 6.0x12.5 +23.0d Hydrophobic Acrylic [id number] - [id number] Implanted:Qty: 1 on 2023 by Daphney Gomez MD at [facility] Left: Eye [employer] 06/28/2025 [id number] 0 / / [id number] Abiomed Inc Impella Cp Percutaneous Left Ventricular Assist Device [id number] - [id number] - [id number] Implanted:Qty: 1 on 07/19/2023 by Roc Myers MD at [facility] [employer] 06/28/2025 0048-00 03 / [id number] / [id number] Terumo Medical Quique Angio-Seal Vip 6fr Closere Device [id number] - [id number] Implanted:Qty: 1 on 07/23/2023 by Roc Myers MD at [facility] [employer] Quique [id number] / / [employer] Device Clsr Perclose Prostyle Sut-Mediatd Closure-Repair Sys 37177-73 - [id number] Implanted:Qty: 1 on 07/23/2023 by Roc Myers MD at [facility] [employer] 03/30/2025 48327-2 3 / / [id number] [employer] Device Clsr Perclose Prostyle Sut-Mediatd Closure-Repair Sys 29715-28 - [id number] Implanted:Qty: 1 on 07/23/2023 by Roc Myers MD at [facility] [employer] 04/30/2025 37082-4 3 / / [id number] Ter[employer] Quique Angio-Seal Vip 6fr Closere Device [id number] - [id number] Implanted:Qty: 1 on 07/23/2023 by Roc Myers MD at [facility] [id number] / / Procedures Procedure Name Priority Date/Time Associated Diagnosis Comments OCT, RETINA - OU - BOTH EYES Routine 12/08/2024 12:26 PM CDT Uncontrolled type 2 diabetes mellitus with hyperglycemia (HCC) DEVICE CHECK - REMOTE Routine 10/04/2024 6:35 AM CDT POCT HEMOGLOBIN A1C Routine 09/14/2024 3 :04 PM CDT Uncontrolled type 2 diabetes mellitus with hyperglycemia (HCC) RENAL FUNCTION PANEL Routine 09/01/2024 2:07 PM CDT Anemia in stage 3 chronic kidney disease, unspecified whether stage 3a or 3b CKD (HCC) Essential hypertension Vitamin D deficiency Chronic renal impairment, stage 3 (moderate), unspecified whether stage 3a or 3b CKD (HCC) 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 chronic kidney disease stage V or end stage renal disease(404.13) (HCC) Chronic systolic heart failure (HCC) Persistent proteinuria ALBUMIN CREATININE RATIO, URINE Routine 09/01/2024 2:07 PM CDT Anemia in stage 3 chronic kidney disease, unspecified whether stage 3a or 3b CKD (HCC) Essential hypertension Vitamin D deficiency Chronic renal impairment, stage 3 (moderate), unspecified whether stage 3a or 3b CKD (HCC) 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 Scan locations included subfoveal. Progression has been stable. Left Eye Quality was good. Scan locations included subfoveal. Progression has been stable. Notes OU: good foveal contour, no IRF/SRF noted, stable to prior us Sascha Cordoba OD OPHTH TOMOGRAPHY Final Result * DEVICE CHECK - REMOTE (10/04/2024 6:35 AM CDT) Anatomical Region Laterality Modality Other 10/04/2024 6:35 AM CDT Narrative 10/11/2024 1:55 PM CDT Interpretation Summary: Battery and Leads (BL) Normal parameters noted on battery and lead(s) --- 8.4 yrs remaining longevity (implanted 2021). Lead impedance, sensing, and threshold trends stable and appropriate. No short V-V intervals. Presenting Rhythm (UT) Atrial Sensing-Ventricular Sensing (-VS) --- /VS (SR) 77 to 82 bpm. Arrhythmic events (AE) No new arrhythmic events in monitoring period --- Since 07/05/24: No AHR or VHR episodes. Transmission Information (TI) Device Summary Report Follow Up (FU) Patient's primary treating physician will be apprised of findings Procedure Note Merissa Davies MD - 10/11/2024 Interpretation Summary: Battery and Leads (BL) Normal parameters noted on battery and lead(s) --- 8.4 yrs remaininglongevity (implanted 2021). Lead impedance, sensing, and thresholdtrends stable and appropriate. No short V-V intervals. Presenting Rhythm (UT) Atrial Sensing-Ventricular Sensing (-VS) --- /VS (SR) 77 to 82 bpm. Arrhythmic events (AE) No new arrhythmic events in monitoring period --- Since 07/05/24: No AHRor VHR episodes. Transmission Information (TI) Device Summary Report Follow Up (FU) Patient's primary treating physician will be apprised of findings Merissa Davies MD [facility] PROCEDURES Final Result * (ABNORMAL) POCT hemoglobin A1c (09/14/2024 3:04 PM CDT) Hemoglobin A1C, POC 10.4(A) 4.0 - 5.6 % Blood 09/14/2024 3:04 PM CDT Winnie Everett MD POINT OF CARE TEST ORDERABLES Final Result * (ABNORMAL) Albumin Creatinine Ratio, Urine (09/01/2024 2:07 PM CDT) Creatinine, ur 48 20 - 320 mg/dL [facility] Microalbumin, ur 20.4 See Note: mg/dL [facility] Comment: Reference Range: Reference Range Not established Microalbumin/creat ratio 425(H) <30 mg/g creat [facility] Comment: The ADA defines abnormalities in albumin excretion as follows: Albuminuria Category Result (mg/g creatinine) Normal to Mildly increased <30 Moderately increased 30-299 Severely increased > OR = 300 The ADA recommends that at least two of three specimens collected within a 3-6 month period be abnormal before considering a patient to be within a diagnostic category. Urine 09/01/2024 2:07 PM CDT 09/01/2024 2:09 PM CDT Narrative [facility] - 09/02/2024 12:54 PM CDT FASTING:NO FASTING: NO Kelvin Paiz MD LAB URINE ORDERABLES Fin al Result [facility] [id number] [id number] * (ABNORMAL) Renal function panel (09/01/2024 2:07 PM CDT) Glucose 194(H) 65 - 99 mg/dL [facility] [facility] Comment: Fasting reference interval For someone without known diabetes, a glucose value >125 mg/dL indicates that they may have diabetes and this should be confirmed with a follow-up test. BUN 21 7 - 25 mg/dL [facility] Creatinine 1.77(H) 0.70 - 1.35 mg/dL [facility] eGFR 43(L) > OR = 60 mL/min/1.7 3m2 [employer] BUN/creat ratio 12 6 - 22 (calc) [facility] Sodium 137 135 - 146 mmol/L [facility] [place] Potassium, pl 4.0 3.5 - 5.3 mmol/L [facility] Chloride 102 98 - 110 mmol/L [facility] Juliano CO2 23 20 - 32 mmol/L [employer] Calcium 9.7 8.6 - 10.3 mg/dL [facility] Phosphorus, sr 3.5 2.5 - 4.5 mg/dL [employer] Albumin 4.8 3.6 - 5.1 g/dL [facility] Juliano Blood 09/01/2024 2:07 PM CDT 09/01/2024 2:09 PM CDT Narrative [facility] - 09/02/2024 12:54 PM CDT FASTING:NO FASTING: NO us Kelvin Paiz MD LAB BLOOD ORDERABLES Fin al Result [facility] [address] [place] [address] * (ABNORMAL) Lipid panel (08/14/2023 11:36 AM CDT) Pathologist [facility] Cholesterol 88 <200 mg/dL [facility] Juliano HDL 28(L) > OR = 40 mg/dL [facility] Juliano Triglycerides 268(H) <150 mg/dL [employer] Juliano Comment: If a non-fasting specimen was collected, consider repeat triglyceride testing on a fasting specimen if clinically indicated. Maria Elena et al. J. of Clin. Lipidol. 2015;9:129-169. LDL 28 mg/dL (calc) [employer] [facility] Juliano Comment: Reference range: <100 Desirable range <100 mg/dL for primary prevention; <70 mg/dL for patients with CHD or diabetic patients with > or = 2 CHD risk factors. LDL-C is now calculated using the Adina calculation, which is a validated novel method providing better accuracy than the Friedewald equation in the estimation of LDL-C. Ector BONILLA et al. PHONG. 2013;310(19): 5178-8650 (http://education.Cardio[employer]iences/faq/LZA681) Chol/HDL ratio 3.1 <5.0 (calc) [facility] Non-HDL, (LDL+VLDL) 60 <130 mg/dL (calc) [facility] [facility] Comment: For patients with diabetes plus 1 major ASCVD risk factor, treating to a non-HDL-C goal of <100 mg/dL (LDL-C of <70 mg/dL) is considered a therapeutic option. Blood 08/14/2023 11:3 6 AM CDT 08/14/2023 11:36 AM CDT Geno Centeno RETURNED CASE INSPECTOR LAB BLOOD ORDERABLES Final Result [facility] [address] [place] [address] * COLONOSCOPY (10/04/2022 1:29 PM CDT) Anatomical Region Laterality Modality Other Narrative Procedure Note Ender Calderon MD - 10/04/2022 1:29 PM CDT ENDOSCOPY LAB Patient Name: Ezequiel Vega Procedure Date: 10/04/2022 1:29 PM Date of : 1960 Admit Type: Outpatient Age: 62 Gender: Male Attending MD: Ender Calderon M.D. Room: [facility] ENDOSCOPY ROOM 03 Note Status: Finalized Procedure: Colonoscopy Indications: Lower abdominal pain, Hematochezia Providers: Ender Calderon M.D. Referring MD: Guillermo Mirza M.D. Medicines: Monitored Anesthesia Care Complications: No immediate complications. Estimated Blood Loss: Estimated blood loss was minimal. Procedure: Pre-Anesthesia Assessment: - Prior to the procedure, a History and Physicalwas performed, and patient medications, allergies and sensitivities were reviewed. The patient'stolerance of previous anesthesia was reviewed. - The risks and benefits of the procedure and the sedation options and risks were discussed with the patient. All questions were answered and informed consent was obtained. - Immediately prior to administration ofmedications, the patient was re-assessed for adequacy to receive sedatives. The benefits, risks and alternatives of theprocedure and sedation were discussed and informed consentwas obtained. All questions were answered. Please referto the signed informed consent document in the medical record. The scope was passed under direct vision.The [id number] was introduced through the anusand advanced to the terminal ileum. The colonoscopy was performed without difficulty. The patient tolerated the procedure well. The quality of the bowel preparation was evaluated using the BBPS (BostonBowel Preparation Scale) with scores of: Right Colon = 3, Transverse Colon = 3 and Left Colon = 3 (entiremucosa seen well with no residual staining, smallfragments of stool or opaque liquid). The total BBPS score equals 9. Findings: The terminal ileum appeared normal. A 3 mm polyp was found in the transverse colon. The polyp wassessile. The polyp was removed with a cold biopsy forceps. Resection and retrieval were complete. A tattoo was seen at the splenic flexure. The tattoo site appeared normal. Two sessile polyps were found in the sigmoid colon. The polyps were 5to 6 mm in size. These polyps were removed with a cold snare. Resectionand retrieval were complete. Multiple diverticula were found in the sigmoid colon. A 4 mm polyp was found in the distal rectum. The polyp was sessile.The polyp was removed with a cold biopsy forceps. Resection and retrieval were complete. Impression: - The examined portion of the ileum was normal. - One 3 mm polyp in the transverse colon, removedwith a cold biopsy forceps. Resected and retrieved. - A tattoo was seen at the splenic flexure. Thetattoo site appeared normal. - Two 5 to 6 mm polyps in the sigmoid colon,removed with a cold snare. Resected and retrieved. - Diverticulosis in the sigmoid colon. - One 4 mm polyp in the distal rectum, removed witha cold biopsy forceps. Resected and retrieved. Recommendation: - Await pathology results. - Repeat colonoscopy in 3 years for surveillance. - Contact Information: During normal business hours - [facility] Coordinator: [phone] After hours, evening, nights, weekends and holidays- Please call the hospital calender machine operator helper at and ask for the GI fellow optoelectronic technician. Attending Participation: I personally performed the entire procedure. Electronically signed by Ender Calderon MD Ender Calderon M.D. 10/04/2022 1:59:07 PM Number of Addenda: 0 Note Initiated On: 10/04/2022 1:29 PM us Ender Calderon MD ENDOSCOPY PROCEDURES Final Result * Serum Hepatitis C ab (12/07/2012 6:10 AM CDT) HCV ab Negative NEG HISTORICAL RESULTS Serum 12/07/2012 6:10 AM CDT Narrative HISTORICAL RESULTS - 12/08/2012 5:08 AM CDT Interpretive Data If confirmation is required, call Laboratory Customer Service to request sample to be sent to [facility] for Hepatitis C Virus (HCV) RNA Detection and Quantitation by Real-Time Reverse Armature Bander-PCR (RT-PCR). Current interpretive data was last revised on 2011 us Abelardo Guidry MD LAB BLOOD ORDERABLES Final R esult HISTORICAL RESULTS from Last 3 Months or Most Recently Relevant to Health Maintenance Insurance MEDICARE [facility] MEDICARE [facility] MEDICARE [facility] MEDICARE [facility] Advance Directives For more information, please contact: [phone] Documents on File Type Date Recorded Patient Supply Specialist Expl anation ADVANCE DIRECTIVE 12/05/2021 1:19 PM POWER OF GAMING DEPARTMENT HEAD-MEDICAL ADVANCE DIRECTIVE 06/23/2019 11:45 AM MIKAELA NG WILL * Full Code (Latest Code Status on File) Date Activated Date Inactivated Comments 09/03/2023 10:22 AM 09/04/2023 7:15 PM * Full Code Date Activated Date Inactivated Comments 08/21/2023 8:27 PM 08/23/2023 3:48 PM * Full Code Date Activated Date Inactivated Comments 07/19/2023 5:26 PM 07/30/2023 9:20 PM * Full Code Date Activated Date Inactivated Comments 07/19/2023 5:26 PM 07/19/2023 5:26 PM * Full Code Date Activated Date Inactivated Comments 02/14/2023 9:23 AM 02/14/2023 4:54 PM Care Teams Reconciliation Specialist Relationship Specialty Start Date End Date Guillermo Mirza MD [address] [facility] [address] [place] [address] PCP - General Family Medicine 09/17/19 Angela Hennessy MD Referring Physician Endocrinology Diabetes & Metabolism 12/15/17 Merissa Davies MD Referring Physician Cardiology 06/11/19 Toby Marquez MD [address] [place] [address] Referring Physician Gastroenterology 10/19/19 Jessy Bates NP [address] [place] [address] [place] [address] Nurse Practitioner Nurse Practitioner 07/23/21 Matt Zarate MD [address] [place], [place] [address] Referring Physician Cardiology 07/30/23 Erika Devine MD [address] [place] [address] Consulting Physician Nephrology 07/30/23 Re Silva, watch dial maker Failure Coordinator 08/27/23 Yanet Britton Primary Corporate Bond Trader 12/16/24
--- OUTSIDE RECORDS SUMMARY | 2024-12-17 13:44 | XMS_ITS | Encounter Summary ---
Author Organization [facility] Address [address] [place] [address] Phone Care Team Providers Care Career Counselor Name Role Phone Angela Hennessy MD Unavailable [phone] Merissa Davies MD Unavailable [phone] Guillermo Mirza MD Primary Care Provider Toby Marquez MD Unavailable [phone] Jana, Jessy Dykes PATIENT ACCESS DIRECTOR Unavailable [phone] Matt Zarate MD Unavailable Erika eDvine MD Unavailable [phone] Shelia Louis RN Unavailable Re Silva RN Unavailable Unavailable Yanet Britton Unavailable Unavailable Encounter Details Date Type Department Care Team (Latest Contact Info) Description 04/20/2021 Orders Only [facility] Scanning, Provider Social History Tobacco Use Types Packs/Day Years Used Date Smoking Tobacco: Former Smokeless Tobacco: Never Alcohol Use Standard Drinks/Week Comments No 0 (1 standard drink = 0.6 oz pur e alcohol) Sex and Gender Information Value Date Recorded Sex Assigned at Not on file Legal Sex Male 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 DEVELOPER Gender Identity Not on file Sexual Orientation Straight 01/18/2019 2: 04 PM CDT documented as of this encounter Plan of Treatment Not on file documented as of this encounter Procedures Procedure Name Priority Date/Time Associated Diagnosis Comments SCAN - RADIOLOGY/IMAGING 04/20/2021 documented in this encounter Results * SCAN - RADIOLOGY/IMAGING (04/20/2021) Anatomical Region Laterality Modality Other us Provider Scanning Final Result documented in this encounter Visit Diagnoses Not on filedocumented in this encounter Additional Health Concerns Infection Onset Date Last Indicated Resolved Time Exposure, COVID-19 Comment:Added automatically based on COVID19 lab answers indicating exposure risk IP Review- Patient can be evaluated for iso removal on 12/07/21. 12/04/21 10:29 AM Neeta Pace 11/26/2021 11/26/2021 3:05 AM CDT documented as of this encounter Care Teams Career Counselor Relationship Specialty Start Date End Date Guillermo Mirza MD [address] [facility] [address] [address] PCP - General Family Medicine 09/17/19 Angela Hennessy MD Referring Physician Endocrinology Diabetes & Metabolism 12/15/17 Merissa Davies MD Referring Physician Cardiology 06/11/19 Toby Marquez MD [address] [address] Referring Physician Gastroenterology 10/19/19 Jessy Bates NP [address] [address] Nurse Practitioner Nurse Practitioner 07/23/21 Matt Zarate MD [address] [address] Referring Physician Cardiology 07/30/23 Erika Dveine MD [address] [place] [address] [place] [address] Consulting Physician Nephrology 07/30/23 Shelia Louis, RN [address] [facility] [address] [place] [address] SHOP Outpatient Patient Support Representative 08/26/23 09/21/23 Re Silva animal care worker Failure Coordinator 08/27/23 Yanet Britton Primary Pattern Maker 12/16/24 documented as of this encounter
--- OUTSIDE RECORDS SUMMARY | 2024-12-17 13:44 | XMS_ITS | Clinical Summary ---
Author Organization [email or web address] Address [address] [facility] Attn: Epic Prelude ADT YULY MORENOCHELITA [address] Care Team Providers Care Physician Neonatology Name Role Phone Unavailable Primary Care Provider Unavailabl e Social History Tobacco Use Types Packs/Day Years Used Date Smoking Tobacco: Never Assessed Sex and Gender Information Value Date Recorded Sex Assigned at Not on file Legal Sex Male 5:29 AM EMT I/85 Gender Identity Not on file Sexual Orientation Not on file Plan of Treatment Health Maintenance Due Date Last Done Comments DTAP/TDAP/TD VACCINES (1 - Tdap) 1981 COLORECTAL SCREENING 2007 Colorectal Cancer Screening 2007 FIT-DNA Q 3 years 2007 FIT/FOBT Q 1 year 2007 Flex Sig/CT Colonography Q 5 years 2007 ZOSTER VACCINE (1 of 2) 2012 INFLUENZA VACCINE (#1) 2024 RSV VACCINE (60+ or ) (1 - 1-dose 75+ series) 2037
--- OUTSIDE RECORDS SUMMARY | 2024-12-17 13:44 | XMS_ITS | Encounter Summary ---
Author Organization [facility] Address [address] [place] [address] Phone Care Team Providers Care Environmental Air Specialist Name Role Phone Killian Coppola MD Primary Care Provider + [phone] No, Physician Primary Care Provider [phone] Killian Coppola MD Primary Care Provider + [phone] No, Physician Primary Care Provider [phone] Killian Coppola MD Primary Care Provider + [phone] Angela Hennessy MD Unavailable [phone] Angela Hennessy MD Unavailable [phone] No, Physician Primary Care Provider [phone] Fabio Enamorado DO Primary Care Provider [phone] Merissa Davies MD Unavailable [phone] Fabio Enamorado DO Primary Care Provider [phone] Guillermo Mirza MD Primary Care Provider Toby Marquez MD Unavailable [phone] Jessy Bates NP Unavailable [phone] Matt Zarate MD Unavailable Erika Devine MD Unavailable [phone] Shelia Louis RN Unavailable Re Silva RN Unavailable Unavailable [employer] Unavailable Unavailable Encounter Details Date Type Department Care Team (Late st Contact Info) Description 09/10/2016 Orders Only [facility] Provider, MD Naldo [address] [place] [address] Social History Tobacco Use Types Packs/Day Years Used Date Smoking Tobacco: Never Assessed Alcohol Use Standard Drinks/Week Comments No 0 (1 standard drink = 0.6 oz pur e alcohol) Sex and Gender Information Value Date Recorded Sex Assigned at Not on file Legal Sex Male 2:02 AM DIRECTOR OF SUSTAINABILITY PROGRAMS Gender Identity Not on file Sexual Orientation Straight 01/18/2019 2: 04 PM CDT documented as of this encounter Plan of Treatment Not on file documented as of this encounter Procedures Procedure Name Priority Date/Time Associated Diagnosis Comments CARDIOLOGY REPORT 09/10/2016 documented in this encounter Results * CARDIOLOGY REPORT (09/10/2016) Anatomical Region Laterality Modality Other Narrative 09/10/2016 Ordered by an unspecified provider. Historical Provider [...] documented as of this encounter Care Teams Environmental Air Specialist Relationship Specialty Start Date End Date Killian Coppola MD [address] [place] [address] PCP - General 09/10/16 12/23/16 No, Physician PCP - General 12/24/16 03/03/17 Killian Coppola MD [address] [place] [address] PCP - General 03/04/17 07/07/17 No, Physician PCP - General 07/08/17 09/22/17 Killian Coppola MD [address] [place] [address] PCP - General Family Medicine 09/23/17 12/20/18 No, Physician PCP - General 12/21/18 04/11/19 Fabio Enamorado DO PCP - General Internal Medicine 04/12/19 06/16/19 Fabio Enamorado DO PCP - General 06/17/19 09/16/19 Guillermo Mirza MD [address] [place] [address] [place] [address] PCP - General Family Medicine 09/17/19 Angela Hennessy MD Referring Physician Endocrinology Diabetes & Metabolism 12/15/17 Angela Hennessy MD Referring Physician Endocrinology Diabetes & Metabolism 02/16/18 04/11/19 Merissa Davies MD Referring Physician Cardiology 06/11/19 Toby Marquez MD [address] [place] [address] [place] [address] Referring Physician Gastroenterology 10/19/19 Jessy Bates NP [address] [address] Nurse Practitioner Nurse Practitioner 07/23/21 Matt Zarate MD [address] [address] Referring Physician Cardiology 07/30/23 Erika Devine MD [address] [address] Consulting Physician Nephrology 07/30/23 Shelia Louis, RN [address] [address] SHOP Outpatient Furniture Repair Technician 08/26/23 09/21/23 Re Silva, batteryman Failure Coordinator 08/27/23 Yanet Britton Primary Senior Sql Server Dba 12/16/24 documented as of this encounter
--- OUTSIDE RECORDS SUMMARY | 2024-12-17 13:44 | XMS_ITS | Encounter Summary ---
Author Organization [facility] Address [address] [place] [address] Phone Care Team Providers Care Compressor Mechanic Name Role Phone Killian Coppola MD Primary Care Provider + [phone] No, Physician Primary Care Provider [phone] Killian Coppola MD Primary Care Provider + [phone] No, Physician Primary Care Provider [phone] Killian Coppola MD Primary Care Provider + [phone] Angela Hennessy MD Unavailable [phone] Angela Hennessy MD Unavailable [phone] No, Physician Primary Care Provider [phone] Fabio Enamorado DO Primary Care Provider [phone] Merissa Davies MD Unavailable Fabio Enamorado DO Primary Care Provider [phone] Guillermo Mirza MD Primary Care Provider Toby Marquez MD Unavailable [phone] Jessy Bates NP Unavailable [phone] Matt Zarate MD Unavailable Erika Devine MD Unavailable [phone] Shelia Louis RN Unavailable Re Silva RN Unavailable Unavailable Tobi Yanet Unavailable Unavailable Encounter Details Date Type Department Care Team (Late st Contact Info) Description 11/18/2016 Orders Only [facility] Provider, MD Naldo [address] [place] [address] Social History Tobacco Use Types Packs/Day Years Used Date Smoking Tobacco: Never Assessed Alcohol Use Standard Drinks/Week Comments No 0 (1 standard drink = 0.6 oz pur e alcohol) Sex and Gender Information Value Date Recorded Sex Assigned at Not on file Legal Sex Male 2:02 AM PROJECT MANAGEMENT INTERN Gender Identity Not on file Sexual Orientation Straight 01/18/2019 2: 04 PM CDT documented as of this encounter Plan of Treatment Not on file documented as of this encounter Procedures Procedure Name Priority Date/Time Associated Diagnosis Comments CARDIOLOGY REPORT 11/18/2016 CARDIOLOGY REPORT 11/18/2016 documented in this encounter Results * CARDIOLOGY REPORT (11/18/2016) Anatomical Region Laterality Modality Other Narrative 11/18/2016 Ordered by an unspecified provider. Historical Provider [facility] C[facility] SERVICES PROCE DURES Final Result * CARDIOLOGY REPORT (11/18/2016) Anatomical Region Laterality Modality Other Narrative 11/18/2016 Ordered by an unspecified provider. Historical Provider CV CARDIAC SERVICES PROCE DURES Final Result documented in this encounter Visit [...] documented as of this encounter Care Teams Compressor Mechanic Relationship Specialty Start Date End Date Killian Coppola MD [address] [place], [place] [id number] PCP - General 09/10/16 12/23/16 No, Physician PCP - General 12/24/16 03/03/17 Killian Coppola MD [address] [place] [address] PCP - General 03/04/17 07/07/17 No, Physician PCP - General 07/08/17 09/22/17 Killian Coppola [place] [address] PCP - General Family Medicine 09/23/17 12/20/18 No, Physician PCP - General 12/21/18 04/11/19 Fabio Enamorado DO PCP - General Internal Medicine 04/12/19 06/16/19 Fabio Enamorado DO PCP - General 06/17/19 09/16/19 Guillermo Mirza MD [address] [facility] [address] [facility] [address] [place] [address] PCP - General Family Medicine 09/17/19 Angela Hennessy MD Referring Physician Endocrinology Diabetes & Metabolism 12/15/17 Angela Hennessy MD Referring Physician Endocrinology Diabetes & Metabolism 02/16/18 04/11/19 Merissa Davies MD Referring Physician Cardiology 06/11/19 Toby Marquez MD [address] [place] [address] Referring Physician Gastroenterology 10/19/19 Jessy Bates NP [address] [place] [address] Nurse Practitioner Nurse Practitioner 07/23/21 Mtat Zarate MD [address] [place] [address] Referring Physician Cardiology 07/30/23 Erika Devine MD [address] [place] [address] [place] [address] Consulting Physician Nephrology 07/30/23 Shelia Louis, RN [address] [facility] [address] [place] [address] SHOP Outpatient Front Counter Clerk 08/26/23 09/21/23 Re Silva, records coordinator Failure Coordinator 08/27/23 Yanet Britton Primary Documentation Manager 12/16/24 documented as of this encounter
== END 2024-12-17 13:36 | disposition home or self-care (01) ==
PROVIDERS: PCP Family Medicine; Visit Provider Family Medicine
DX: Z12.2 Encounter for screening for malignant neoplasm of respiratory organs (principal); Z87.891 Personal history of nicotine dependence
CPT/HCPCS: 71271